=== PATIENT | male | born 1935 | race Caucasian/White ===

== ENCOUNTER 2017-08-11 10:28 | Inpatient (IN) | payer MEDICARE, BC ==
[2017-08-11] MEDS ORDERED: Sodium Chloride 0.9% 10 ML Syringe FLUSH PRN (10:41)
[2017-08-11] MEDS ORDERED: Famotidine 20 MG/2 ML SDV IVPUSH ONE (10:55)
[2017-08-11] MEDS ORDERED: Pantoprazole 40 MG Vial IVPUSH ONE (10:55)
--- NOTE | 2017-08-11 10:58 | EDM.PDOC ---
ED HPI GENERAL MEDICAL PROBLEM - General Chief Complaint: Cardiovascular Problem Stated Complaint: [facility] Time Seen by Provider: 08/11/17 10:41 Source of Information: Reports: Patient, RN Notes Reviewed - History of Present Illness INITIAL COMMENTS - FREE TEXT/NARRATIVE: 82-year-old gentleman comes in with symptoms of dizziness, black tarry stools for the last 2 nights and now some bright blood in the toilet this morning about an hour and a half ago. He does have history of recent bypass surgery done at [facility] just over 3 weeks ago. He did have a complication after surgery of a "ruptured graft" the day after surgery. His states he was "on life support for 8-1/2 days", not coming around. Decision was made to remove life support and he "awakened one hour later". With further recovery he was ready for discharge to [facility] about one week ago. He currently is in atrial fibrillation, noted to be on aspirin and Peridex in addition to other current medications listed. He also now does have a pacemaker and I believe internal defibrillator as well. This morning he does feel more dizzy and lightheaded than usual, according to fpc staff dropped his sats down into the 70s, blood pressure into the 90s systolic and heart rate into the 40s. With oxygen his sats of come up to 100%. Blood pressure and heart rate also improved on arrival to ED. We'll to ED he has no chest or abdominal discomfort. He does not any longer feel short of breath. He has no prior history of bleeding ulcer or other GI bleeding. His last colonoscopy many years ago, about 10 years ago. - Related Data Allergies Allergy/AdvReac Type Severity Reaction Status Date / Time No Known Allergies Allergy Verified 08/11/17 10:49 Home Meds: Home Meds Acetaminophen [Tylenol] 650 mg PO Q6H PRN 08/11/17 [History] Aspirin 325 mg PO DAILY 08/11/17 [History] Calcium Carbonate [Tums] 600 mg PO QID PRN 08/11/17 [History] Dabigatran Etexilate Mesylate [Pradaxa] 150 mg PO BID 08/11/17 [History] Famotidine 20 mg PO BID 08/11/17 [History] Furosemide 40 mg PO BID 08/11/17 [History] Hydrochlorothiazide 25 mg PO DAILY 08/11/17 [History] Latanoprost [Xalatan 0.005% Ophth Soln] 1 drop EYEBOTH BEDTIME 08/11/17 [History ] Losartan [Cozaar] 100 mg PO DAILY 08/11/17 [History] Metoprolol Tartrate [Lopressor] 50 mg PO BID 08/11/17 [History] Multivit-Min/FA/Lycopene/Lut [Certavite Sr-Antioxidant Tab] 1 tab PO DAILY 08/11 [History] Mupirocin Calcium [Bactroban] 1 applic TOP BID 08/11/17 [History] [place] Nasal [place] 2 spray INH BEDTIME 08/11/17 [History] Potassium Chloride 40 meq PO BEDTIME 08/11/17 [History] Potassium Chloride 80 meq PO DAILY 08/11/17 [History] Sennosides/Docusate Sodium [Senna-Docusate Sodium] 1 tab PO BID 08/11/17 [ History] Tamsulosin [Flomax] 0.4 mg PO BEDTIME 08/11/17 [History] Vit A,C & E/Lutein/Minerals [Healthy Eyes] 1 tab PO DAILY 08/11/17 [History] amLODIPine [Norvasc] 2.5 mg PO DAILY 08/11/17 [History] atorvaSTATin [Lipitor] 40 mg PO BEDTIME 08/11/17 [History] ED ROS GENERAL - Review of Systems Review Of Systems: See Below Constitutional: Reports: Diaphoresis (Gone). Denies: Fever, Chills HEENT: Denies: Throat Pain Respiratory: Reports: Shortness of Breath (Now better) Cardiovascular: Denies: Chest Pain Endocrine: Reports: Fatigue GI/Abdominal: Reports: Melena. Denies: Abdominal Pain, Diarrhea, Nausea, Vomiting Musculoskeletal: Reports: No Symptoms Skin: Reports: Pallor Neurological: Reports: Dizziness, Weakness. Denies: Trouble Speaking ( Generalized) ED EXAM, GENERAL - Physical Exam Exam: See Below General Appearance: Alert, No Apparent Distress Eye Exam: Bilateral Eye: PERRL Throat/Mouth: Normal Inspection Head: Atraumatic. No: Facial Swelling Neck: Supple, Full Range of Motion Respiratory/Chest: No Respiratory Distress, Lungs Clear, Normal Breath Sounds Cardiovascular: Irregularly Irregular GI/Abdominal: Soft, Non-Tender Rectal (Males) Exam: Other (Dark, slightly maroon stool strongly heme-positive) Back Exam: No: CVA Tenderness (L), CVA Tenderness (R) Extremities: Normal Inspection, Pedal Edema. No: Leg Pain (Trace bilateral), Increased Warmth, Redness Neurological: Alert, Oriented, No Motor/Sensory Deficits Skin Exam: Warm, Dry, Pallor EKG INTERPRETATION EKG Date: 08/11/17 Rhythm: A-Fib (fib/flutter, rate 100) QRS: Other (LAFB) ST-T: Other (T wave inversion V6) Course - Vital Signs Last Recorded V/S: Last Vital Signs Temp 96.5 F 08/11/17 10:28 Pulse 80 08/11/17 10:28 Resp 20 08/11/17 10:28 BP 108/60 08/11/17 10:28 Pulse Ox 76 L 08/11/17 10:28 - Orders/Labs/Meds Orders: Active Orders 24 hr Category Date Time Status EKG 12 Lead [EKG Documentation Completion] [RC] STAT Care 08/11/17 10:41 Active Peripheral IV Care [RC] . DIRECTED Care 08/11/17 10:42 Active Chest 1V Frontal [CR] Stat Exams 08/11/17 10:57 Taken PACKED CELLS [RED BLOOD CELLS LP] [BBK] Stat Lab 08/11/17 11:05 Received TYPE AND SCREEN [BBK] Stat Lab 08/11/17 11:05 Received Sodium Chloride 0.9% [Normal Saline] 1,000 ml Med 08/11/17 11:00 Active IV ASDIRECTED Sodium Chloride 0.9% [Saline Flush] Med 08/11/17 10:41 Active 10 ml FLUSH ASDIRECTED PRN Peripheral IV Insertion Adult [OM.PC] Stat Oth 08/11/17 10:42 Ordered Medication Orders Sodium Chloride (Normal Saline) 1,000 mls @ 150 mls/hr IV ASDIRECTED LORETTA Last Admin: 08/11/17 11:15 Dose: 150 mls/hr Sodium Chloride (Saline Flush) 10 ml FLUSH ASDIRECTED PRN PRN Reason: Keep Vein Open Last Admin: 08/11/17 11:15 Dose: 10 ml Labs: Laboratory Tests 08/11/17 08/11/17 08/11/17 Range/Units 11:05 11:05 11:05 WBC 7.94 (4.23-9.07) K/mm3 RBC 2.56 L (4.63-6.08) M/mm3 Hgb 7.1 L* (13.7-17.5) gm/L Hct 22.9 L (40.1-51.0) % MCV 89.5 (79.0-92.2) fl MCH 27.7 (25.7-32.2) pg MCHC 31.0 L (32.2-35.5) g/dl RDW Std Deviation 42.2 (35.1-43.9) fL Plt Count 593 H (163-337) K/mm3 MPV 9.4 (9.4-12.3) fl Neut % (Auto) 71.4 H (34.0-67.9) % Lymph % (Auto) 20.9 L (21.8-53.1) % [place] % (Auto) 5.8 (5.3-12.2) % Eos % (Auto) 1.1 (0.8-7.0) Baso % (Auto) 0.4 (0.1-1.2) % Neut # (Auto) 5.67 H (1.78-5.38) K/mm3 Lymph # (Auto) 1.66 (1.32-3.57) K/mm3 [place] # (Auto) 0.46 (0.30-0.82) K/mm3 Eos # (Auto) 0.09 (0.04-0.54) K/mm3 Baso # (Auto) 0.03 (0.01-0.08) K/mm3 Manual Slide Review Abnormal smear Sodium 137 (136-145) mEq/L Potassium 5.3 H (3.5-5.1) mEq/L Chloride 104 (98-107) mEq/L Carbon Dioxide 22 (21-32) mEq/L Anion Gap 16.3 H (5-15) BUN 40 H (7-18) mg/dL Creatinine 1.1 (0.7-1.3) mg/dL Est Cr Clr Drug Dosing 63.57 mL/min Estimated GFR (MDRD) > 60 (>60) mL/min BUN/Creatinine Ratio 36.4 H (14-18) Glucose 162 H (83-115) mg/dL Calcium 8.2 L (8.5-10.1) mg/dL Total Bilirubin 0.4 (0.2-1.0) mg/dL AST 31 (15-37) U/L ALT 67 H (16-63) U/L Alkaline Phosphatase 80 (46-116) U/L Troponin I 0.039 (0.00-0.056) ng/mL NT-Pro-B Natriuret Pep 1540 H (0-450) pg/mL Total Protein 6.0 L (6.4-8.2) g/dl Albumin 2.5 L (3.4-5.0) g/dl Globulin 3.5 gm/dL Albumin/Globulin Ratio 0.7 L (1-2) Meds: Medications Generic Name Dose Route Start Last Admin Trade Name Freq PRN Reason Stop Dose Admin Sodium Chloride 1,000 mls @ 150 mls/hr 08/11/17 11:00 08/11/17 11:15 Normal Saline IV 150 mls/hr ASDIRECTED LORETTA Administration Sodium Chloride 10 ml 08/11/17 10:41 08/11/17 11:15 Saline Flush FLUSH 10 ml ASDIRECTED PRN Administration Keep Vein Open Discontinued Medications Generic Name Dose Route Start Last Admin Trade Name Freq PRN Reason Stop Dose Admin Famotidine 20 mg 08/11/17 10:55 08/11/17 11:17 Pepcid IVPUSH 08/11/17 10:56 20 mg ONETIME ONE Administration Pantoprazole Sodium 40 mg 08/11/17 10:55 08/11/17 11:21 Protonix Iv IVPUSH 08/11/17 10:56 40 mg ONETIME ONE Administration - Re-Assessments/Exams Free Text/Narrative Re-Assessment/Exam: 08/11/17 11:25 Type and screen ordered with initial labs, hemoglobin has come back at 7.1. Request has been put in for 2 units of packed cells. I discussed risks benefits with patient and spouse and they strongly agree that he should get blood transfusion before his blood level drops any further. He would like to be admitted to this hospital if possible. CXR looks fine, other labs pending. Departure - Departure Time of Disposition: 11:30 Disposition: Admitted As Inpatient 66 Condition: Serious Clinical Impression: GIB (gastrointestinal bleeding) Qualifiers: GI bleed type/associated pathology: melena Qualified Code(s): K92.1 - Melena Referrals: Bill Love MD [Primary Care Provider] - Forms: ED Department Discharge ED Communication - Discussed Case With (1) Discussed Case With (1): Admitting Provider (Dr Menchaca, decision to admit at about 11:35.) - My Orders Last 24 Hours: My Active Orders 08/11/17 10:41 EKG 12 Lead [EKG Documentation Completion] [RC] STAT Sodium Chloride 0.9% [Saline Flush] 10 ml FLUSH ASDIRECTED PRN 08/11/17 10:42 Peripheral IV Care [RC] . DIRECTED Peripheral IV Insertion Adult [OM.PC] Stat 08/11/17 10:57 Chest 1V Frontal [CR] Stat 08/11/17 11:00 Sodium Chloride 0.9% [Normal Saline] 1,000 ml IV ASDIRECTED 08/11/17 11:05 PACKED CELLS [RED BLOOD CELLS LP] [BBK] Stat TYPE AND SCREEN [BBK] Stat - Assessment/Plan Last 24 Hours: My Active Orders 08/11/17 10:41 EKG 12 Lead [EKG Documentation Completion] [RC] STAT Sodium Chloride 0.9% [Saline Flush] 10 ml FLUSH ASDIRECTED PRN 08/11/17 10:42 Peripheral IV Care [RC] . DIRECTED Peripheral IV Insertion Adult [OM.PC] Stat 08/11/17 10:57 Chest 1V Frontal [CR] Stat 08/11/17 11:00 Sodium Chloride 0.9% [Normal Saline] 1,000 ml IV ASDIRECTED 08/11/17 11:05 PACKED CELLS [RED BLOOD CELLS LP] [BBK] Stat TYPE AND SCREEN [BBK] Stat
[2017-08-11] MEDS ORDERED: Sodium Chloride 0.9% 1,000 ML IV SCH (11:00)
--- NOTE | 2017-08-11 12:19 | CR ---
Chest: Portable view of the chest was obtained. Comparison: No prior chest x-ray. Heart size and mediastinum are within normal limits for portable technique. Pacemaker is noted. Prosthetic heart valve is seen with sternotomy wires. Lungs are clear with no acute parenchymal densities. Bony structures are grossly intact. Impression: 1. Incidental findings. Nothing acute is identified on portable chest x-ray. Diagnostic code #2
--- NOTE | 2017-08-11 14:56 | PCM.HP ---
H&P History of Present Illness - General Date of Service: 08/11/17 Admit Problem/Dx: Admission Diagnosis/Problem Admission Diagnosis/Problem Gastric hemorrhage Source of Information: Patient, Provider, RN, RN Notes Reviewed History Limitations: Reports: No Limitations - History of Present Illness Initial Comments - Free Text/Narative: Abiodun Worrell is an 82 yo male who presents to our ED today 08/11/17 with 2 days of dark tarry stool. He also reports bright red blood mixed inwith the dark tarry stool as o this morning. His hemoglobin was found to be 7. He has denied any dyspepsia, abdominal pain, or heartburn. His appetite has been fair but he is residing in a usp and does not like the food. He reports a previous colonoscopy of over 10 years ago which wasn normal per his report. There were some benign polyps removed at that time. Brothers had colon cancer and 3 siblings have Crohn's disease. He reportedly had CABG 4 and carotid and coronary endarterectomy 3 weeks ago at [facility] in [place]. He reportedly had a "ruptured graft" the day after surgery and was subsequently intubated and remained in the ICU for 8 and a half days. Because he was not making progress the decision was made to terminate life-support. A few hours after this he suddenly woke up and continued to improve. steve was then discharged back to [facility] to [facility] approximately one week ago. He has been in A. fib and is on aspirin and Pradaxa. While in [place] a pacemaker and internal defibrillator were placed. As this morning he reportedly has started feeling dizzy and lightheaded. skilled nursing staff reports his sats dropped into the 70s and blood pressure was in the 90s systolic. Heart rate was also noted to be in the 40s. Oxygen was initiated his satsreturned to 100%. On arrival ED heart rate and blood pressure had improved. He denied any chest or abdominal discomfort. Denies shortness of breath. He has no prior history of bleeding ulcers or GI bleeding. In the ER 12-lead EKG was obtained which shows an A. fib aat a rate of 100. A LAFB was noted There is also T-wave inversion noted on V6. Capture was 96.5F. Pulse 80. Respirations 20. Blood pressure 108/60. Pulse ox 76%. Labs were obtained: WBCs were 7.94. Hemoglobin is low at 7.1. Hematocrit low at 22.9. He is normocytic. Neutrophils elevated at 71.4%. Sodium was good at 137. Potassium was igh at 5.3. Chloride 104. Carbon dioxide 22. Anion gap was elevated at 16.3. BUN was high at 40. Creatinine 1.1. EGFR is greater than 60. Glucose is high at 162. Calcium 8.2. Bilirubin 0.4. AST was 31, ALT 67, alkaline phosphatase 80. Troponin was negative at 0.039. ProBNP was high at 1540. Total protein was low at 6.0. Albumin is low at 2.5. He was given Pepcid, Protonix, and 150 mls NS was started. He was typed and screened for 2 units. Chest x-ray shows nothing acute. His rectal exam showed strongly heme positive, slightly maroon stool. He carries a history of: oosteoarthritis, BPH, hypertension, mild asthma, A. fib , KAYDEN, CAD, recent CABG, recent pacemaker/defibrillator placement. he is a former smoker. He is subsequently admitted to the medical floor on telemetry. He is a full code. His PCP is Dr. Love at [facility]. - Related Data Allergies/Adverse Reactions: Allergies Allergy/AdvReac Type Severity Reaction Status Date / Time No Known Allergies Allergy Verified 08/11/17 15:10 Home Medications: Home Meds Acetaminophen [Tylenol] 650 mg PO Q6H PRN 08/11/17 [History] Aspirin 325 mg PO DAILY 08/11/17 [History] Calcium Carbonate [Tums] 600 mg PO QID PRN 08/11/17 [History] Dabigatran Etexilate Mesylate [Pradaxa] 150 mg PO BID 08/11/17 [History] Famotidine 20 mg PO BID 08/11/17 [History] Furosemide 40 mg PO BID 08/11/17 [History] Hydrochlorothiazide 25 mg PO DAILY 08/11/17 [History] Latanoprost [Xalatan 0.005% Ophth Soln] 1 drop EYEBOTH BEDTIME 08/11/17 [History ] Losartan [Cozaar] 100 mg PO DAILY 08/11/17 [History] Metoprolol Tartrate [Lopressor] 50 mg PO BID 08/11/17 [History] Multivit-Min/FA/Lycopene/Lut [Certavite Sr-Antioxidant Tab] 1 tab PO DAILY 08/11 [History] Mupirocin Calcium [Bactroban] 1 applic TOP BID 08/11/17 [History] [place] Nasal [place] 2 spray INH BEDTIME 08/11/17 [History] Potassium Chloride 40 meq PO DAILY 08/11/17 [History] Potassium Chloride 80 meq PO BID 08/11/17 [History] Sennosides/Docusate Sodium [Senna-Docusate Sodium] 1 tab PO BID 08/11/17 [ History] Tamsulosin [Flomax] 0.4 mg PO BEDTIME 08/11/17 [History] Vit A,C & E/Lutein/Minerals [Healthy Eyes] 1 tab PO DAILY 08/11/17 [History] amLODIPine [Norvasc] 2.5 mg PO DAILY 08/11/17 [History] atorvaSTATin [Lipitor] 40 mg PO BEDTIME 08/11/17 [History] Past Medical History HEENT History: Reports: Cataract, Impaired Vision Other HEENT History: wears eyeglasses Cardiovascular History: Reports: Afib, Hypertension, DC, Pacemaker Other Cardiovascular History: ablation, 3 nerves, ventricular bygemny Respiratory History: Reports: Sleep Apnea Other Respiratory History: wears C-PAP while sleeping. Other Genitourinary History: enlarged prostate. Musculoskeletal History: Reports: Back Pain, Chronic Neurological History: Reports: Concussion - Infectious Disease History Infectious Disease History: Reports: Chicken Pox, Measles, Mumps - Past Surgical History HEENT Surgical History: Reports: Cataract Surgery Cardiovascular Surgical History: Reports: Coronary Artery Bypass GI Surgical History: Reports: Cholecystectomy Musculoskeletal Surgical History: Reports: Knee Replacement Social & Family History - Tobacco Use Smoking Status *Q: Former Smoker Used Tobacco, but Quit: No - Caffeine Use Caffeine Use: Reports: Coffee - Recreational Drug Use Recreational Drug Use: No H&P Review of Systems - Review of Systems: Review Of Systems: See Below General: Reports: Malaise, Weakness, Fatigue. Denies: Fever, Night Sweats, Diaphoresis, Decreased Appetite HEENT: Reports: No Symptoms Pulmonary: Reports: No Symptoms. Denies: Shortness of Breath, Wheezing, Cough, Sputum, Other Cardiovascular: Reports: No Symptoms. Denies: Chest Pain, Palpitations, Dyspnea on Exertion, Edema, Lightheadedness Gastrointestinal: Reports: Flatus, Hematochezia, Melena. Denies: Abdominal Pain , Decreased Appetite, Hematemesis, Nausea, Vomiting Genitourinary: Reports: No Symptoms. Denies: Dysuria, Frequency, Burning, Pain , Urgency Musculoskeletal: Reports: No Symptoms Skin: Reports: No Symptoms Psychiatric: Reports: No Symptoms Neurological: Reports: No Symptoms Hematologic/Lymphatic: Reports: Anemia Immunologic: Reports: No Symptoms Exam - Exam Exam: See Below - Vital Signs Vital Signs: Last Vital Signs Temp 98.0 F 08/11/17 13:02 Pulse 60 08/11/17 13:02 Resp 20 08/11/17 13:02 BP 122/58 L 08/11/17 13:02 Pulse Ox 100 08/11/17 13:02 Weight: 275 lb - Exam Quality Assessment: Supplemental Oxygen General: Alert, Oriented, Cooperative. No: Mild Distress HEENT: PERRLA, Hearing Intact, Mucosa Moist & [place], Nares Patent, Normal Nasal Septum, Posterior Pharynx Clear, Conjunctiva Clear, EOMI, EACs Clear, TMs Clear Neck: Supple, Trachea Midline Lungs: Clear to Auscultation, Normal Respiratory Effort Cardiovascular: Irregular Rhythm, Other (CABG scar on chest ) GI/Abdominal Exam: Normal Bowel Sounds, Soft, Non-Tender, No Organomegaly, No Distention, No Abnormal Bruit, No Mass, Pelvis Stable (Male) Exam: Deferred Rectal (Males) Exam: Deferred Back Exam: Normal Inspection, Full Range of Motion Extremities: Normal Inspection, Normal Range of Motion, Non-Tender, Normal Capillary Refill, Pedal Edema (trace bilaterally ) Peripheral Pulses: 2+: Radial (L), Radial (R), Posterior Tibial (L), Posterior Tibial (R), Dorsalis Pedis (L), Dorsalis Pedis (R) Skin: Warm, Dry, Intact Neurological: Cranial Nerves Intact (grossly ) Neuro Extensive - Mental Status: Alert, Oriented x3, Normal Mood/Affect, Normal Cognition, Memory Intact Psychiatric: Alert, Normal Affect, Normal Mood - Patient Data Result Diagrams: 08/11/17 11:05 08/11/17 11:05 *Q Meaningful Use (ADM) - VTE *Q VTE Criteria *Q: - Stroke *Q Stroke Criteria *Q: - AMI *Q AMI Criteria *Q: - Problem List (1) GIB (gastrointestinal bleeding) SNOMED Code(s): 12002069 ICD Code: K92.2 - GASTROINTESTINAL HEMORRHAGE, UNSPECIFIED Status: Acute Priority: High Current Visit: Yes Qualifiers: GI bleed type/associated pathology: melena Qualified Code(s): K92.1 - Melena (2) Acute blood loss anemia SNOMED Code(s): 808248557 ICD Code: D62 - ACUTE POSTHEMORRHAGIC ANEMIA Status: Acute Priority: High Current Visit: Yes (3) S/P CABG x 4 SNOMED Code(s): 518123979 ICD Code: Z95.1 - PRESENCE OF AORTOCORONARY BYPASS GRAFT Status: Chronic Priority: High Current Visit: Yes (4) S/P placement of cardiac pacemaker SNOMED Code(s): 808937708, 237980424 ICD Code: Z95.0 - PRESENCE OF CARDIAC PACEMAKER Status: Chronic Priority : High Current Visit: Yes (5) KAYDEN (obstructive sleep apnea) SNOMED Code(s): 37870524 ICD Code: G47.33 - OBSTRUCTIVE SLEEP APNEA (ADULT) (PEDIATRIC) Status: Chronic Priority: Low Current Visit: Yes (6) Osteoarthritis SNOMED Code(s): 171057306 ICD Code: M19.90 - UNSPECIFIED OSTEOARTHRITIS, UNSPECIFIED SITE Status: Chronic Priority: Low Current Visit: No Qualifiers: Osteoarthritis location: unspecified site Osteoarthritis type: primary Qualified Code(s): M19.91 - Primary osteoarthritis, unspecified site (7) Asthma SNOMED Code(s): 290400132 ICD Code: J45.909 - UNSPECIFIED ASTHMA, UNCOMPLICATED Status: Chronic Priority: Low Current Visit: No Qualifiers: Asthma severity: mild Asthma persistence: unspecified Asthma complication type: unspecified Qualified Code(s): J45.998 - Other asthma (8) A-fib SNOMED Code(s): 63442245 ICD Code: I48.91 - UNSPECIFIED ATRIAL FIBRILLATION Status: Chronic Priority: Medium Current Visit: Yes Qualifiers: Atrial fibrillation type: chronic Qualified Code(s): I48.2 - Chronic atrial fibrillation (9) HTN (hypertension) SNOMED Code(s): 51048874 ICD Code: I10 - ESSENTIAL (PRIMARY) HYPERTENSION Status: Chronic Priority : Low Current Visit: No Qualifiers: Hypertension type: essential hypertension Qualified Code(s): I10 - Essential (primary) hypertension (10) Other cardiomyopathies SNOMED Code(s): 21742994 ICD Code: I42.8 - OTHER CARDIOMYOPATHIES Status: Chronic Priority: Medium Current Visit: No (11) BPH (benign prostatic hyperplasia) SNOMED Code(s): 512320221 ICD Code: N40.0 - BENIGN PROSTATIC HYPERPLASIA WITHOUT LOWER URINRY TRACT SYMP Status: Chronic Priority: Low Current Visit: No Qualifiers: Lower urinary tract symptom presence: unspecified whether lower urinary tract symptoms present Qualified Code(s): N40.0 - Benign prostatic hyperplasia without lower urinary tract symptoms (12) CAD (coronary artery disease) SNOMED Code(s): 34726989 ICD Code: I25.10 - ATHSCL HEART DISEASE OF [place] CORONARY ARTERY W/O ANG PCTRS Status: Chronic Priority: Medium Current Visit: No Qualifiers: Coronary Disease-Associated Artery/Lesion type: bypass graft [place] vs. transplanted heart: upper [place] heart Associated angina: angina presence unspecified Qualified Code(s): I25.810 - Atherosclerosis of coronary artery bypass graft(s) without angina pectoris Problem List Initiated/Reviewed/Updated: Yes Orders Last 24hrs: Medication Orders Sodium Chloride (Normal Saline) 1,000 mls @ 150 mls/hr IV ASDIRECTED LORETTA Last Admin: 08/11/17 11:15 Dose: 150 mls/hr Sodium Chloride (Saline Flush) 10 ml FLUSH ASDIRECTED PRN PRN Reason: Keep Vein Open Last Admin: 08/11/17 11:15 Dose: 10 ml Assessment/Plan Comment:: I/P: Acute: GI bleeding -Reports melonic stools for 2 days prior to coming to ed -BRBPR morning of admission -Denies abdominal pain, dyspepsia, heartburn -On ASA and Pradexa - hold -Recently placed pacemaker/defibrilator and CABGx4 -No hx/o colon cancer, ulcers, GI bleeding -Last colonoscopy 10+ years ago -Hgb 7.2 in ED -Heme positive maroon stool in ED -2 units PRBC given in ED and on floor - lasix given after -Clear liquid diet -Dr Ortega consulted - planning on colonoscopy/EGD on Tuesday -Off blood thinners for 48 hrs -Bowel prep per Dr. Ortega orders -PPI daily -Monitor AM labs Anemia -2/2 above -Received 2 uints -Other orders as above Chronic: S/P CABGx4 S/P pacemaker/ICD placement KAYDEN - home CPAP OA A-fib - hold blood thinners for now BPH CAD Plan: Admit to medical floor on telemetry CM/SW for discharge planning - resident of [facility] currently PT/OT GI prophylaxis: PPI DVT/PE prophylaxis: KATT miller - No blood thinners due to bleed, No SCDs due to recent vein stripping Other orders as indicated above Home meds as ordered Routine AM labs Code status: Full code; PCP: Dr. Love at [facility]; Cardiology: Dr. Meyer; CT surgeon: Dr. Alvarez
[2017-08-11] MEDS ORDERED: Furosemide 20 MG/2 ML VIAL IVPUSH ONE ×2 (15:45→19:29)
[2017-08-11] MEDS: Sodium Chloride 0.9% 250 ML IV SCH (15:58)
[2017-08-11] MEDS ORDERED: Ondansetron 4 MG Tab.DIS PO PRN (16:14)
[2017-08-11] MEDS ORDERED: Ondansetron 4 MG/2 ML SDV IV PRN (16:14)
[2017-08-11] MEDS ORDERED: Acetaminophen 325 MG Tab PO PRN (16:14)
[2017-08-11] MEDS ORDERED: Acetaminophen/HYDROcodone 325-5 MG Tab PO PRN (16:14)
[2017-08-11] MEDS ORDERED: Metoprolol Tartrate 5 MG/5 ML SDV IVPUSH PRN (16:20)
[2017-08-11] MEDS ORDERED: hydrALAZINE 20 MG/ML SDV IVPUSH PRN (16:20)
--- NOTE | 2017-08-11 17:00 | PCM.CONS ---
H&P History of Present Illness - General Date of Service: 08/11/17 Admit Problem/Dx: Admission Diagnosis/Problem Admission Diagnosis/Problem Gastric hemorrhage Source of Information: Patient, Family, Provider - History of Present Illness Initial Comments - Free Text/Narative: 82-year-old male is about 3 weeks status post coronary artery bypass grafting which was complicated by a postop bleeding graft necessitating emergency sternotomy for control of bleeding. He was in the ICU for 2 weeks and life support was withdrawn because he was clinically deemed to be nonsalvageable despite all medical efforts, but he managed to survive and dramatically improved to the point where he could be discharged to postcardiac surgical rehabilitation on Plavix and Pradexa. A pacemaker was placed prior to discharge. He continued to do well in rehabilitation but began to notice that he was becoming more fatigued with ambulation and manifested more dyspnea on exertion. 2 days ago he had a dark stool. 24 hours ago he had 3 black tarry stools. This morning he had red bleeding. Because of this he presented to the emergency room for evaluation and was found to have a hemoglobin of approximately 7. He denied dyspepsia abdominal pain and heartburn. His appetite has been fair at best because he doesn't like the food at the residential. His last colonoscopy was over 10 years ago and by report from him was normal. His previous colonoscopy before that one was associated with benign polyps which were removed. His brother had colon cancer. 3 siblings have Crohn's disease. He is currently hemodynamically stable. I have been asked to see him for GI bleeding. - Related Data Allergies/Adverse Reactions: Allergies Allergy/AdvReac Type Severity Reaction Status Date / Time No Known Allergies Allergy Verified 08/11/17 15:10 Home Medications: Home Meds Acetaminophen [Tylenol] 650 mg PO Q6H PRN 08/11/17 [History] Aspirin 325 mg PO DAILY 08/11/17 [History] Calcium Carbonate [Tums] 600 mg PO QID PRN 08/11/17 [History] Dabigatran Etexilate Mesylate [Pradaxa] 150 mg PO BID 08/11/17 [History] Famotidine 20 mg PO BID 08/11/17 [History] Furosemide 40 mg PO BID 08/11/17 [History] Hydrochlorothiazide 25 mg PO DAILY 08/11/17 [History] Latanoprost [Xalatan 0.005% Ophth Soln] 1 drop EYEBOTH BEDTIME 08/11/17 [History ] Losartan [Cozaar] 100 mg PO DAILY 08/11/17 [History] Metoprolol Tartrate [Lopressor] 50 mg PO BID 08/11/17 [History] Multivit-Min/FA/Lycopene/Lut [Certavite Sr-Antioxidant Tab] 1 tab PO DAILY 08/11 [History] Mupirocin Calcium [Bactroban] 1 applic TOP BID 08/11/17 [History] [place] Nasal [place] 2 spray INH BEDTIME 08/11/17 [History] Potassium Chloride 40 meq PO DAILY 08/11/17 [History] Potassium Chloride 80 meq PO BID 08/11/17 [History] Sennosides/Docusate Sodium [Senna-Docusate Sodium] 1 tab PO BID 08/11/17 [ History] Tamsulosin [Flomax] 0.4 mg PO BEDTIME 08/11/17 [History] Vit A,C & E/Lutein/Minerals [Healthy Eyes] 1 tab PO DAILY 08/11/17 [History] amLODIPine [Norvasc] 2.5 mg PO DAILY 08/11/17 [History] atorvaSTATin [Lipitor] 40 mg PO BEDTIME 08/11/17 [History] Past Medical History HEENT History: Reports: Cataract, Impaired Vision Other HEENT History: wears eyeglasses Cardiovascular History: Reports: Afib, Hypertension, [place], Pacemaker Other Cardiovascular History: ablation, 3 nerves, ventricular bygemny Respiratory History: Reports: Sleep Apnea Other Respiratory History: wears C-PAP while sleeping. Other Genitourinary History: enlarged prostate. Musculoskeletal History: Reports: Back Pain, Chronic Neurological History: Reports: Concussion - Infectious Disease History Infectious Disease History: Reports: Chicken Pox, Measles, Mumps - Past Surgical History HEENT Surgical History: Reports: Cataract Surgery Cardiovascular Surgical History: Reports: Coronary Artery Bypass GI Surgical History: Reports: Cholecystectomy Musculoskeletal Surgical History: Reports: Knee Replacement Social & Family History - Tobacco Use Smoking Status *Q: Former Smoker Used Tobacco, but Quit: Yes Month/Year Tobacco Last Used: 1979 Second Hand Smoke Exposure: No - Caffeine Use Caffeine Use: Reports: Coffee - Recreational Drug Use Recreational Drug Use: No H&P Review of Systems - Review of Systems: Review Of Systems: ROS reveals no pertinent complaints other than HPI. Exam - Exam Exam: See Below - Vital Signs Vital Signs: Last Vital Signs Temp 36.6 C 08/11/17 16:05 Pulse 63 08/11/17 16:05 Resp 20 08/11/17 16:05 BP 132/59 L 08/11/17 16:05 Pulse Ox 99 08/11/17 16:05 Weight: 128.14 kg - Exam Quality Assessment: Supplemental Oxygen General: Alert, Oriented, Cooperative HEENT: EOMI, Hearing Intact Neck: Supple, Trachea Midline Lungs: Clear to Auscultation, Normal Respiratory Effort, Other (Well-healed sternotomy incision. Well-healed pacemaker incision.) Cardiovascular: Irregular Rhythm GI/Abdominal Exam: Soft, Non-Tender (Male) Exam: Deferred Rectal (Males) Exam: Deferred Back Exam: Normal Inspection Extremities: Non-Tender Skin: Warm, Dry, Other (Pale) Neuro Extensive - Mental Status: Alert, Oriented x3, Normal Mood/Affect, Normal Cognition Psychiatric: Alert, Normal Affect, Normal Mood - Patient Data Result Diagrams: 08/11/17 11:05 08/11/17 11:05 Consult PN Assessment/Plan Procedures: Procedures CARDIOVASCULAR STRESS TEST (01/28/14) ECG MONIT/REPRT UP TO 48 HRS (01/28/16) ECG MONIT/REPRT UP TO 48 HRS (01/28/16) ECG MONIT/REPRT UP TO 48 HRS (03/05/15) ECG MONIT/REPRT UP TO 48 HRS (03/05/15) ECG MONIT/REPRT UP TO 48 HRS (10/09/14) ECG MONIT/REPRT UP TO 48 HRS (10/09/14) ECG MONIT/REPRT UP TO 48 HRS (05/20/14) ECG MONIT/REPRT UP TO 48 HRS (05/20/14) HT MUSCLE IMAGE SPECT MULT (01/28/14) POLYSOM 6/>YRS CPAP 4/> PARM (07/19/15) TISSUE EXAM BY PATHOLOGIST (02/05/14) (1) Acute blood loss anemia SNOMED Code(s): 899121859 Code(s): D62 - ACUTE POSTHEMORRHAGIC ANEMIA Priority: High Current Visit : Yes (2) GIB (gastrointestinal bleeding) SNOMED Code(s): 62648426 Code(s): K92.2 - GASTROINTESTINAL HEMORRHAGE, UNSPECIFIED Priority: High Current Visit: Yes Qualifiers: GI bleed type/associated pathology: melena Qualified Code(s): K92.1 - Melena Problem List Initiated/Reviewed/Updated: Yes My Orders Last 24 Hours: imp: Patient is at risk for postop stress gastritis and ulcers, with bleeding exacerbated by his antiplatelet agent and anticoagulation. His symptoms are improving after 1 unit of red blood cells and as I understand it he scheduled to receive another unit. Both he and his are interested in diagnostic panendoscopy in an effort to identify the source of his bleeding. His annual coordination has been stopped. Although I would like to have more distance between his most recent hospitalization and the diagnostic endoscopy I feel that the patient is strong enough to tolerate the procedures. plan: Esophagogastroduodenoscopy and diagnostic colonoscopy for Tuesday morning. Tomorrow I begin his bowel preparation with magnesium citrate and Dulcolax. He and his have agreed to have me proceed and they want everything done.
[2017-08-11] MEDS ORDERED: THROMBIN RECTAL ONE ×2 (22:02)
[2017-08-11] MEDS ORDERED: WATER FOR IRRIGATION STERILE RECTAL ONE ×2 (22:02)
[2017-08-12] MEDS ORDERED: Furosemide 40 MG/4 ML VIAL IVPUSH ONE (05:53)
[2017-08-12] MEDS: Sodium Chloride 0.9% 250 ML IV SCH (06:37)
[2017-08-12] MEDS ORDERED: Pantoprazole 40 MG Tab.CR PO SCH (09:00)
--- NOTE | 2017-08-12 09:02 | PCM.CONSN ---
- General Info Date of Service: 08/12/17 - Review of Systems General: Reports: Weakness, Fatigue Gastrointestinal: Reports: Other (Several bloody bowel movements yesterday.) - Patient Data Vitals - Most Recent: Last Vital Signs Temp 36.6 C 08/12/17 08:00 Pulse 99 08/12/17 08:00 Resp 18 08/12/17 08:00 BP 113/50 L 08/12/17 08:00 Pulse Ox 97 08/12/17 08:00 Weight - Most Recent: 125.464 kg I&O - Last 24 Hours: Intake & Output 08/11/17 08/12/17 08/12/17 22:59 06:59 14:59 Intake Total 1229 715 Output Total 700 Balance 1229 15 Lab Results Last 24 Hours: Laboratory Results - last 24 hr 08/11/17 08/11/17 08/11/17 Range/Units 15:35 20:51 20:51 Hgb 7.4 L (13.7-17.5) gm/L Hct 22.5 L (40.1-51.0) % PT (8.0-13.0) SECONDS INR APTT (22-36) SECONDS MRSA (PCR) Negative Blood Type A NEGATIVE Gel Antibody Screen Negative Crossmatch See Detail 08/11/17 Range/Units 20:51 Hgb (13.7-17.5) gm/L Hct (40.1-51.0) % PT 12.7 (8.0-13.0) SECONDS INR 1.18 APTT 32 (22-36) SECONDS MRSA (PCR) Blood Type Gel Antibody Screen Crossmatch Med Orders - Current: Current Medications Acetaminophen (Tylenol) 650 mg PO Q4H PRN PRN Reason: Pain (Mild 1-3)/fever Hydrocodone Bitart/Acetaminophen ([place] 325-5 Mg) 1 tab PO Q4H PRN PRN Reason: Pain (moderate 4-6) Hydralazine HCl (Apresoline) 10 mg IVPUSH Q6H PRN PRN Reason: Hypertension Sodium Chloride (Normal Saline) 1,000 mls @ 150 mls/hr IV ASDIRECTED [facility] Last Admin: 08/11/17 11:15 Dose: 150 mls/hr Sodium Chloride (Normal Saline) 250 mls @ 250 mls/hr IV ASDIRECTED [facility] Last Admin: 08/12/17 06:37 Dose: 250 mls/hr Metoprolol Tartrate (Lopressor) 5 mg IVPUSH Q4H PRN PRN Reason: Tachycardia Ondansetron HCl (Zofran Odt) 4 mg PO Q6H PRN PRN Reason: nausea, able to take PO Ondansetron HCl (Zofran) 4 mg IV Q6H PRN PRN Reason: Nausea/Vomiting Pantoprazole Sodium (Protonix) 40 mg PO DAILY [facility] Sodium Chloride (Saline Flush) 10 ml FLUSH ASDIRECTED PRN PRN Reason: Keep Vein Open Last Admin: 08/11/17 11:15 Dose: 10 ml Discontinued Medications Thrombin 50,000 unit/ Sterile (Water 1,000 ml) 0 unit RECTAL ONETIME ONE Stop: 08/11/17 22:03 Last Admin: 08/12/17 01:24 Dose: Not Given Famotidine (Pepcid) 20 mg IVPUSH ONETIME ONE Stop: 08/11/17 10:56 Last Admin: 08/11/17 11:17 Dose: 20 mg Furosemide (Lasix) 20 mg IVPUSH NOW ONE Stop: 08/11/17 15:46 Last Admin: 08/11/17 15:58 Dose: 20 mg Furosemide (Lasix) 20 mg IVPUSH NOW ONE Stop: 08/11/17 19:30 Last Admin: 08/11/17 19:57 Dose: 20 mg Furosemide (Lasix) 40 mg IVPUSH ONETIME ONE Stop: 08/12/17 05:54 Last Admin: 08/12/17 06:04 Dose: 40 mg Pantoprazole Sodium (Protonix Iv) 40 mg IVPUSH ONETIME ONE Stop: 08/11/17 10:56 Last Admin: 08/11/17 11:21 Dose: 40 mg - Exam Quality Assessment: Supplemental Oxygen General: Alert, Oriented, Cooperative, No Acute Distress Consult PN Assessment/Plan Procedures: Procedures CARDIOVASCULAR STRESS TEST (01/28/14) ECG MONIT/REPRT UP TO 48 HRS (01/28/16) ECG MONIT/REPRT UP TO 48 HRS (01/28/16) ECG MONIT/REPRT UP TO 48 HRS (03/05/15) ECG MONIT/REPRT UP TO 48 HRS (03/05/15) ECG MONIT/REPRT UP TO 48 HRS (10/09/14) ECG MONIT/REPRT UP TO 48 HRS (10/09/14) ECG MONIT/REPRT UP TO 48 HRS (05/20/14) ECG MONIT/REPRT UP TO 48 HRS (05/20/14) HT MUSCLE IMAGE SPECT MULT (01/28/14) POLYSOM 6/>YRS CPAP 4/> PARM (07/19/15) TISSUE EXAM BY PATHOLOGIST (02/05/14) (1) Acute blood loss anemia SNOMED Code(s): 502068285 Code(s): D62 - ACUTE POSTHEMORRHAGIC ANEMIA Priority: High Current Visit : Yes (2) GIB (gastrointestinal bleeding) SNOMED Code(s): 35771489 Code(s): K92.2 - GASTROINTESTINAL HEMORRHAGE, UNSPECIFIED Priority: High Current Visit: Yes Qualifiers: GI bleed type/associated pathology: melena Qualified Code(s): K92.1 - Melena Problem List Initiated/Reviewed/Updated: Yes My Orders Last 24 Hours: imp: Started yesterday because of ongoing bleeding. Patient will receive a total of 4 units of packed cells. A source needs to be localized and I will give him a quick bowel prep today and proceed with endoscopy this afternoon. plan: Diagnostic EGD and colonoscopy.
[2017-08-12] MEDS ORDERED: Magnesium Citrate Solution 296 ML Bottle PO ONE (09:04)
[2017-08-12] MEDS ORDERED: IDARUCIZUMAB 2.5 GM/50 ML IVPUSH ONE (09:16)
[2017-08-12] MEDS ORDERED: Bisacodyl 5 MG Tab PO ONE (09:25)
[2017-08-12] MEDS: IDARUCIZUMAB 2.5 GM/50 ML IVPUSH ONE ×2 (09:46→09:48)
--- NOTE | 2017-08-12 09:47 | PCM.PREANE ---
Preanesthetic Assessment - Anesthesia/Transfusion/Family Hx Anesthesia History: Prior Anesthesia Without Reaction Family History of Anesthesia Reaction: No Transfusion History: Prior Transfusion Without Reaction Intubation History: Unknown - Review of Systems General: No Symptoms, Fatigue Pulmonary: No Symptoms (Former smoker quit in 1979, with a history of mild asthma. History of KAYDEN with CPAP used.) Cardiovascular: No Symptoms (Significant for: HTN, CAD, ND, CHF, AFIB, CABG times 4 vessels Jul 19, 2017 with ND on , rescent Carotid endartectomy 3 weeks ago/ placement of pacemaker July 21, 2017 with internal defibrillator.), Dyspnea on Exertion, Lightheadedness (since anemia recently) Gastrointestinal: No Symptoms, Decreased Appetite, Melena, Nausea Neurological: No Symptoms Other: Reports: None (Kidney function decreased with BUN=40.), Easy Bleeding ( On ASA, and [facility]ad[facility] Easy Bruising - Physical Assessment NPO Status Date: 08/12/17 NPO Status Time: 10:00 Pulse: 63 O2 Sat by Pulse Oximetry: 97 Respiratory Rate: 18 Blood Pressure: 132/59 Temperature: 36.6 C Vital Signs: Last Vital Signs Temp 36.6 C 08/12/17 08:00 Pulse 99 08/12/17 08:00 Resp 18 08/12/17 08:00 BP 113/50 L 08/12/17 08:00 Pulse Ox 97 08/12/17 08:00 Height: 1.93 m Weight: 125.464 kg ASA Class: 4 Mental Status: Alert & Oriented x3 Airway Class: Mallampati = 2 Dentition: Reports: Normal Dentition, Caries Thyro-Mental Finger Breadths: 3 Mouth Opening Finger Breadths: 3 ROM/Head Extension: Full Lungs: Clear to Auscultation, Normal Respiratory Effort Cardiovascular: Regular Rate (Paced rhythm noted.), Regular Rhythm, No Murmurs - Lab Values: Laboratory Last Values WBC 7.94 K/mm3 (4.23-9.07) 08/11/17 11:05 RBC 2.56 M/mm3 (4.63-6.08) L 08/11/17 11:05 Hgb 7.4 gm/L (13.7-17.5) L 08/11/17 20:51 Hct 22.5 % (40.1-51.0) L 08/11/17 20:51 MCV 89.5 fl (79.0-92.2) 08/11/17 11:05 MCH 27.7 pg (25.7-32.2) 08/11/17 11:05 MCHC 31.0 g/dl (32.2-35.5) L 08/11/17 11:05 RDW Std Deviation 42.2 fL (35.1-43.9) 08/11/17 11:05 Plt Count 593 K/mm3 (163-337) H 08/11/17 11:05 MPV 9.4 fl (9.4-12.3) 08/11/17 11:05 Neut % (Auto) 71.4 % (34.0-67.9) H 08/11/17 11:05 Lymph % (Auto) 20.9 % (21.8-53.1) L 08/11/17 11:05 [place] % (Auto) 5.8 % (5.3-12.2) 08/11/17 11:05 Eos % (Auto) 1.1 (0.8-7.0) 08/11/17 11:05 Baso % (Auto) 0.4 % (0.1-1.2) 08/11/17 11:05 Neut # (Auto) 5.67 K/mm3 (1.78-5.38) H 08/11/17 11:05 Lymph # (Auto) 1.66 K/mm3 (1.32-3.57) 08/11/17 11:05 Caroline # (Auto) 0.46 K/mm3 (0.30-0.82) 08/11/17 11:05 Eos # (Auto) 0.09 K/mm3 (0.04-0.54) 08/11/17 11:05 Baso # (Auto) 0.03 K/mm3 (0.01-0.08) 08/11/17 11:05 Manual Slide Review Abnormal smear 08/11/17 11:05 PT 12.7 SECONDS (8.0-13.0) 08/11/17 20:51 INR 1.18 08/11/17 20:51 APTT 32 SECONDS (22-36) 08/11/17 20:51 Sodium 137 mEq/L (136-145) 08/11/17 11:05 Potassium 5.3 mEq/L (3.5-5.1) H 08/11/17 11:05 Chloride 104 mEq/L (98-107) 08/11/17 11:05 Carbon Dioxide 22 mEq/L (21-32) 08/11/17 11:05 Anion Gap 16.3 (5-15) H 08/11/17 11:05 BUN 40 mg/dL (7-18) H 08/11/17 11:05 Creatinine 1.1 mg/dL (0.7-1.3) 08/11/17 11:05 Est Cr Clr Drug Dosing 63.57 mL/min 08/11/17 11:05 Estimated GFR (MDRD) > 60 mL/min (>60) 08/11/17 11:05 BUN/Creatinine Ratio 36.4 (14-18) H 08/11/17 11:05 Glucose 162 mg/dL (83-115) H 08/11/17 11:05 Calcium 8.2 mg/dL (8.5-10.1) L 08/11/17 11:05 Total Bilirubin 0.4 mg/dL (0.2-1.0) 08/11/17 11:05 AST 31 U/L (15-37) 08/11/17 11:05 ALT 67 U/L (16-63) H 08/11/17 11:05 Alkaline Phosphatase 80 U/L (46-116) 08/11/17 11:05 Troponin I 0.039 ng/mL (0.00-0.056) 08/11/17 11:05 NT-Pro-B Natriuret Pep 1540 pg/mL (0-450) H 08/11/17 11:05 Total Protein 6.0 g/dl (6.4-8.2) L 08/11/17 11:05 Albumin 2.5 g/dl (3.4-5.0) L 08/11/17 11:05 Globulin 3.5 gm/dL 08/11/17 11:05 Albumin/Globulin Ratio 0.7 (1-2) L 08/11/17 11:05 MRSA (PCR) Negative 08/11/17 15:35 Blood Type A NEGATIVE 08/11/17 20:51 Gel Antibody Screen Negative 08/11/17 20:51 Crossmatch See Detail 08/11/17 20:51 Above labs reviewed and noted and ok to proceed with diagnostic EGD, colonoscopy. - Imaging/EKG Impressions: CXR: negative EKG: A Fib alvm=[id number], LAFB noted. - Allergies Allergies/Adverse Reactions: Allergies Allergy/AdvReac Type Severity Reaction Status Date / Time No Known Allergies Allergy Verified 08/11/17 15:10 - Blood Blood Available: Yes Product(s) Available: PRBC - Anesthesia Plan Pre-Op Medication Ordered: Beta Cristina Beta Cristina: Metoprolol Med Last Dose Date: 08/11/17 Med Last Dose Time: 08:00 - Acknowledgements Anesthesia Type Planned: MAC Pt an Appropriate Candidate for the Planned Anesthesia: Yes Alternatives and Risks of Anesthesia Discussed w Pt/Guardian: Yes Pt/Guardian Understands and Agrees with Anesthesia Plan: Yes PreAnesthesia Questionnaire HEENT History: Reports: Cataract, Impaired Vision Other HEENT History: wears eyeglasses Cardiovascular History: Reports: Afib, Hypertension, ND, Pacemaker Other Cardiovascular History: ablation, 3 nerves, ventricular bygemny Respiratory History: Reports: Sleep Apnea Other Respiratory History: wears C-PAP while sleeping. Other Genitourinary History: enlarged prostate. Musculoskeletal History: Reports: Back Pain, Chronic Neurological History: Reports: Concussion - Infectious Disease History Infectious Disease History: Reports: Chicken Pox, Measles, Mumps - Past Surgical History HEENT Surgical History: Reports: Cataract Surgery Cardiovascular Surgical History: Reports: Coronary Artery Bypass GI Surgical History: Reports: Cholecystectomy Musculoskeletal Surgical History: Reports: Knee Replacement - SUBSTANCE USE Smoking Status *Q: Former Smoker Tobacco Use Within Last Twelve Months: Cigarettes Second Hand Smoke Exposure: No Recreational Drug Use History: No - HOME MEDS Home Medications: Home Meds Acetaminophen [Tylenol] 650 mg PO Q6H PRN 08/11/17 [History] Aspirin 325 mg PO DAILY 08/11/17 [History] Calcium Carbonate [Tums] 600 mg PO QID PRN 08/11/17 [History] Dabigatran Etexilate Mesylate [Pradaxa] 150 mg PO BID 08/11/17 [History] Famotidine 20 mg PO BID 08/11/17 [History] Furosemide 40 mg PO BID 08/11/17 [History] Hydrochlorothiazide 25 mg PO DAILY 08/11/17 [History] Latanoprost [Xalatan 0.005% Ophth Soln] 1 drop EYEBOTH BEDTIME 08/11/17 [History ] Losartan [Cozaar] 100 mg PO DAILY 08/11/17 [History] Metoprolol Tartrate [Lopressor] 50 mg PO BID 08/11/17 [History] Multivit-Min/FA/Lycopene/Lut [Certavite Sr-Antioxidant Tab] 1 tab PO DAILY 08/11 [History] Mupirocin Calcium [Bactroban] 1 applic TOP BID 08/11/17 [History] [place] Nasal [place] 2 spray INH BEDTIME 08/11/17 [History] Potassium Chloride 40 meq PO DAILY 08/11/17 [History] Potassium Chloride 80 meq PO BID 08/11/17 [History] Sennosides/Docusate Sodium [Senna-Docusate Sodium] 1 tab PO BID 08/11/17 [ History] Tamsulosin [Flomax] 0.4 mg PO BEDTIME 08/11/17 [History] Vit A,C & E/Lutein/Minerals [Healthy Eyes] 1 tab PO DAILY 08/11/17 [History] amLODIPine [Norvasc] 2.5 mg PO DAILY 08/11/17 [History] atorvaSTATin [Lipitor] 40 mg PO BEDTIME 08/11/17 [History] - CURRENT (IN HOUSE) MEDS Current Meds: Current Medications Acetaminophen (Tylenol) 650 mg PO Q4H PRN PRN Reason: Pain (Mild 1-3)/fever Hydrocodone Bitart/Acetaminophen ([place] 325-5 Mg) 1 tab PO Q4H PRN PRN Reason: Pain (moderate 4-6) Hydralazine HCl (Apresoline) 10 mg IVPUSH Q6H PRN PRN Reason: Hypertension Sodium Chloride (Normal Saline) 1,000 mls @ 150 mls/hr IV ASDIRECTED [facility] Last Admin: 08/11/17 11:15 Dose: 150 mls/hr Sodium Chloride (Normal Saline) 250 mls @ 250 mls/hr IV ASDIRECTED [facility] Last Admin: 08/12/17 06:37 Dose: 250 mls/hr Metoprolol Tartrate (Lopressor) 5 mg IVPUSH Q4H PRN PRN Reason: Tachycardia Ondansetron HCl (Zofran Odt) 4 mg PO Q6H PRN PRN Reason: nausea, able to take PO Ondansetron HCl (Zofran) 4 mg IV Q6H PRN PRN Reason: Nausea/Vomiting Pantoprazole Sodium (Protonix) 40 mg PO DAILY [facility] Sodium Chloride (Saline Flush) 10 ml FLUSH ASDIRECTED PRN PRN Reason: Keep Vein Open Last Admin: 08/11/17 11:15 Dose: 10 ml Discontinued Medications Bisacodyl (Dulcolax) 30 mg PO ONETIME ONE Stop: 08/12/17 09:26 Thrombin 50,000 unit/ Sterile (Water 1,000 ml) 0 unit RECTAL ONETIME ONE Stop: 08/11/17 22:03 Last Admin: 08/12/17 01:24 Dose: Not Given Famotidine (Pepcid) 20 mg IVPUSH ONETIME ONE Stop: 08/11/17 10:56 Last Admin: 08/11/17 11:17 Dose: 20 mg Furosemide (Lasix) 20 mg IVPUSH NOW ONE Stop: 08/11/17 15:46 Last Admin: 08/11/17 15:58 Dose: 20 mg Furosemide (Lasix) 20 mg IVPUSH NOW ONE Stop: 08/11/17 19:30 Last Admin: 08/11/17 19:57 Dose: 20 mg Furosemide (Lasix) 40 mg IVPUSH ONETIME ONE Stop: 08/12/17 05:54 Last Admin: 08/12/17 06:04 Dose: 40 mg Magnesium Citrate (Citrate Of Magnesia) 296 ml PO ONETIME ONE Stop: 08/12/17 09:05 Pantoprazole Sodium (Protonix Iv) 40 mg IVPUSH ONETIME ONE Stop: 08/11/17 10:56 Last Admin: 08/11/17 11:21 Dose: 40 mg
[2017-08-12] MEDS ORDERED: Lidocaine 1% 6 ML ONE (10:53)
[2017-08-12] MEDS ORDERED: Propofol 200 MG/20 ML SDV ONE (10:53)
[2017-08-12] MEDS ORDERED: fentaNYL 100 MCG/2 ML SDV ONE (10:54)
--- NOTE | 2017-08-12 12:46 | PCM48HPAN ---
Post Anesthesia Note - EVALUATION WITHIN 48HRS OF ANESTHETIC Vital Signs in Normal Range: Yes Patient Participated in Evaluation: Yes Respiratory Function Stable: Yes Airway Patent: Yes Cardiovascular Function Stable: Yes Hydration Status Stable: Yes Pain Control Satisfactory: Yes Nausea and Vomiting Control Satisfactory: Yes Mental Status Recovered: Yes Pulse Rate: 96 SaO2: 95 Resp Rate: 18 Temperature: 36 C Blood Pressure: 140/70
--- NOTE | 2017-08-12 12:54 | PCM.OPNOTE ---
- General Post-Op/Procedure Note Date of Surgery/Procedure: 08/12/17 Operative Procedure(s): Esophagogastroduodenoscopy Findings: Large second portion of the duodenum antimesenteric ulcer containing exudate and some chronic scarring. 2 satellite ulcers proximal and distal to this area. None of the ulcers or bleeding. There were no visible vessels. There was no luminal blood clot. The first part of the duodenum was endoscopically normal. The ampulla of Vater was unremarkable as well. The stomach was endoscopically normal. Pre Op Diagnosis: Acute gastrointestinal blood loss anemia Post-Op Diagnosis: Multiple duodenal ulcers Anesthesia Technique: MAC, Moderate Sedation Primary Surgeon: Ronnell Ortega EBL in mLs: 0 Complications: None Condition: Good Free Text/Narrative:: Intake & Output 08/11/17 08/12/17 08/12/17 22:59 06:59 14:59 Intake Total 1229 715 380 Output Total 700 Balance 1229 15 380 After adequate IV sedation and analgesia was obtained with monitoring the patient was placed on his left side. A lubricated endoscope was inserted through a bite-block into the esophagus and advanced under direct vision to the stomach where additional air was given. There was no clot or fresh bleeding seen. The scope was advanced towards the pylorus which was intubated. I introduced the scope to the distal second part of the duodenum and there was no luminal blood. On withdrawal of the scope there was a large perhaps 2 cm antimesenteric ulcer with exudate at its base and two 1 cm satellite ulcers. There were no visible vessels. The ampulla of Vater was endoscopically normal. The pylorus was unremarkable. The scope was then withdrawn to the antrum which was endoscopically normal. In the retroflexed view there was no hiatal hernia. The fundus and cardiac regions were grossly normal. The body of stomach was unremarkable. The GE junction was sharp and had no acute or chronic changes. The body of the esophagus was unremarkable. Addiction Therapist photographs were taken for the patient for the medical record. Air was removed as I finished the procedure which he tolerated well.
--- NOTE | 2017-08-12 14:28 | PCM.PN ---
- General Info Date of Service: 08/12/17 Admission Dx/Problem (Free Text): Admission Diagnosis/Problem Admission Diagnosis/Problem Gastric hemorrhage - Patient Data Vitals - Most Recent: Last Vital Signs Temp 96.8 F 08/12/17 12:46 Pulse 96 08/12/17 12:46 Resp 18 08/12/17 12:46 BP 140/70 08/12/17 12:46 Pulse Ox 95 08/12/17 12:46 Weight - Most Recent: 276 lb 9.6 oz I&O - Last 24 Hours: Intake & Output 08/11/17 08/12/17 08/12/17 22:59 06:59 14:59 Intake Total 1229 715 380 Output Total 700 Balance 1229 15 380 Lab Results Last 24 Hours: Laboratory Results - last 24 hr 08/11/17 08/11/17 08/11/17 Range/Units 15:35 20:51 20:51 WBC (4.23-9.07) K/mm3 RBC (4.63-6.08) M/mm3 Hgb 7.4 L (13.7-17.5) gm/L Hct 22.5 L (40.1-51.0) % MCV (79.0-92.2) fl MCH (25.7-32.2) pg MCHC (32.2-35.5) g/dl RDW Std Deviation (35.1-43.9) fL Plt Count (163-337) K/mm3 MPV (9.4-12.3) fl Neut % (Auto) (34.0-67.9) % Lymph % (Auto) (21.8-53.1) % Burke % (Auto) (5.3-12.2) % Eos % (Auto) (0.8-7.0) Baso % (Auto) (0.1-1.2) % Neut # (Auto) (1.78-5.38) K/mm3 Lymph # (Auto) (1.32-3.57) K/mm3 Burke # (Auto) (0.30-0.82) K/mm3 Eos # (Auto) (0.04-0.54) K/mm3 Baso # (Auto) (0.01-0.08) K/mm3 Manual Slide Review PT (8.0-13.0) SECONDS INR APTT (22-36) SECONDS Sodium (136-145) mEq/L Potassium (3.5-5.1) mEq/L Chloride (98-107) mEq/L Carbon Dioxide (21-32) mEq/L Anion Gap (5-15) BUN (7-18) mg/dL Creatinine (0.7-1.3) mg/dL Est Cr Clr Drug Dosing mL/min Estimated GFR (MDRD) (>60) mL/min BUN/Creatinine Ratio (14-18) Glucose (83-115) mg/dL Calcium (8.5-10.1) mg/dL Magnesium (1.8-2.4) mg/dl C-Reactive Protein (<1.0) mg/dL NT-Pro-B Natriuret Pep (0-450) pg/mL MRSA (PCR) Negative Blood Type A NEGATIVE Gel Antibody Screen Negative Crossmatch See Detail 08/11/17 08/12/17 08/12/17 Range/Units 20:51 13:20 13:20 WBC 11.37 H (4.23-9.07) K/mm3 RBC 2.61 L (4.63-6.08) M/mm3 Hgb 7.5 L (13.7-17.5) gm/L Hct 22.8 L (40.1-51.0) % MCV 87.4 (79.0-92.2) fl MCH 28.7 (25.7-32.2) pg MCHC 32.9 (32.2-35.5) g/dl RDW Std Deviation 46.4 H (35.1-43.9) fL Plt Count 275 (163-337) K/mm3 MPV 9.9 (9.4-12.3) fl Neut % (Auto) 74.8 H (34.0-67.9) % Lymph % (Auto) 17.0 L (21.8-53.1) % Burke % (Auto) 7.2 (5.3-12.2) % Eos % (Auto) 0.1 L (0.8-7.0) Baso % (Auto) 0.1 (0.1-1.2) % Neut # (Auto) 8.51 H (1.78-5.38) K/mm3 Lymph # (Auto) 1.93 (1.32-3.57) K/mm3 Burke # (Auto) 0.82 (0.30-0.82) K/mm3 Eos # (Auto) 0.01 L (0.04-0.54) K/mm3 Baso # (Auto) 0.01 (0.01-0.08) K/mm3 Manual Slide Review Abnormal smear PT 12.7 (8.0-13.0) SECONDS INR 1.18 APTT 32 (22-36) SECONDS Sodium 139 (136-145) mEq/L Potassium 4.1 (3.5-5.1) mEq/L Chloride 105 (98-107) mEq/L Carbon Dioxide 25 (21-32) mEq/L Anion Gap 13.1 (5-15) BUN 46 H (7-18) mg/dL Creatinine 1.2 (0.7-1.3) mg/dL Est Cr Clr Drug Dosing 58.27 mL/min Estimated GFR (MDRD) 58 (>60) mL/min BUN/Creatinine Ratio 38.3 H (14-18) Glucose 155 H (83-115) mg/dL Calcium 7.7 L (8.5-10.1) mg/dL Magnesium 1.8 (1.8-2.4) mg/dl C-Reactive Protein 1.3 H* (<1.0) mg/dL NT-Pro-B Natriuret Pep (0-450) pg/mL MRSA (PCR) Blood Type Gel Antibody Screen Crossmatch 08/12/17 Range/Units 13:20 WBC (4.23-9.07) K/mm3 RBC (4.63-6.08) M/mm3 Hgb (13.7-17.5) gm/L Hct (40.1-51.0) % MCV (79.0-92.2) fl MCH (25.7-32.2) pg MCHC (32.2-35.5) g/dl RDW Std Deviation (35.1-43.9) fL Plt Count (163-337) K/mm3 MPV (9.4-12.3) fl Neut % (Auto) (34.0-67.9) % Lymph % (Auto) (21.8-53.1) % Burke % (Auto) (5.3-12.2) % Eos % (Auto) (0.8-7.0) Baso % (Auto) (0.1-1.2) % Neut # (Auto) (1.78-5.38) K/mm3 Lymph # (Auto) (1.32-3.57) K/mm3 Burke # (Auto) (0.30-0.82) K/mm3 Eos # (Auto) (0.04-0.54) K/mm3 Baso # (Auto) (0.01-0.08) K/mm3 Manual Slide Review PT (8.0-13.0) SECONDS INR APTT (22-36) SECONDS Sodium (136-145) mEq/L Potassium (3.5-5.1) mEq/L Chloride (98-107) mEq/L Carbon Dioxide (21-32) mEq/L Anion Gap (5-15) BUN (7-18) mg/dL Creatinine (0.7-1.3) mg/dL Est Cr Clr Drug Dosing mL/min Estimated GFR (MDRD) (>60) mL/min BUN/Creatinine Ratio (14-18) Glucose (83-115) mg/dL Calcium (8.5-10.1) mg/dL Magnesium (1.8-2.4) mg/dl C-Reactive Protein (<1.0) mg/dL NT-Pro-B Natriuret Pep 775 H (0-450) pg/mL MRSA (PCR) Blood Type Gel Antibody Screen Crossmatch Med Orders - Current: Current Medications Acetaminophen (Tylenol) 650 mg PO Q4H PRN PRN Reason: Pain (Mild 1-3)/fever Hydrocodone Bitart/Acetaminophen ([place] 325-5 Mg) 1 tab PO Q4H PRN PRN Reason: Pain (moderate 4-6) Hydralazine HCl (Apresoline) 10 mg IVPUSH Q6H PRN PRN Reason: Hypertension Sodium Chloride (Normal Saline) 1,000 mls @ 150 mls/hr IV ASDIRECTED [facility] Last Admin: 08/11/17 11:15 Dose: 150 mls/hr Metoprolol Tartrate (Lopressor) 5 mg IVPUSH Q4H PRN PRN Reason: Tachycardia Ondansetron HCl (Zofran Odt) 4 mg PO Q6H PRN PRN Reason: nausea, able to take PO Ondansetron HCl (Zofran) 4 mg IV Q6H PRN PRN Reason: Nausea/Vomiting Pantoprazole Sodium (Protonix) 40 mg PO DAILY [facility] Last Admin: 08/12/17 10:15 Dose: Not Given Sodium Chloride (Saline Flush) 10 ml FLUSH ASDIRECTED PRN PRN Reason: Keep Vein Open Last Admin: 08/11/17 11:15 Dose: 10 ml Discontinued Medications Bisacodyl (Dulcolax) 30 mg PO ONETIME ONE Stop: 08/12/17 09:26 Last Admin: 08/12/17 09:47 Dose: 30 mg Thrombin 50,000 unit/ Sterile (Water 1,000 ml) 0 unit RECTAL ONETIME ONE Stop: 08/11/17 22:03 Last Admin: 08/12/17 01:24 Dose: Not Given Famotidine (Pepcid) 20 mg IVPUSH ONETIME ONE Stop: 08/11/17 10:56 Last Admin: 08/11/17 11:17 Dose: 20 mg Fentanyl (Sublimaze) Confirm Administered Dose 100 mcg .ROUTE .STK-MED ONE Stop: 08/12/17 10:55 Furosemide (Lasix) 20 mg IVPUSH NOW ONE Stop: 08/11/17 15:46 Last Admin: 08/11/17 15:58 Dose: 20 mg Furosemide (Lasix) 20 mg IVPUSH NOW ONE Stop: 08/11/17 19:30 Last Admin: 08/11/17 19:57 Dose: 20 mg Furosemide (Lasix) 40 mg IVPUSH ONETIME ONE Stop: 08/12/17 05:54 Last Admin: 08/12/17 06:04 Dose: 40 mg Sodium Chloride (Normal Saline) 250 mls @ 250 mls/hr IV ASDIRECTED [facility] Last Admin: 08/12/17 06:37 Dose: 250 mls/hr Lidocaine HCl (Xylocaine-Mpf 1%) Confirm Administered Dose 6 mls @ as directed .ROUTE .STK-MED ONE Stop: 08/12/17 10:54 Magnesium Citrate (Citrate Of Magnesia) 296 ml PO ONETIME ONE Stop: 08/12/17 09:05 Last Admin: 08/12/17 09:47 Dose: 296 ml Pantoprazole Sodium (Protonix Iv) 40 mg IVPUSH ONETIME ONE Stop: 08/11/17 10:56 Last Admin: 08/11/17 11:21 Dose: 40 mg Propofol (Diprivan 20 Ml) Confirm Administered Dose 200 mg .ROUTE .STK-MED ONE Stop: 08/12/17 10:54 - Problem List & Annotations (1) GIB (gastrointestinal bleeding) SNOMED Code(s): 40886736 Code(s): K92.2 - GASTROINTESTINAL HEMORRHAGE, UNSPECIFIED Status: Acute Priority: High Current Visit: Yes Qualifiers: GI bleed type/associated pathology: melena Qualified Code(s): K92.1 - Melena (2) Acute blood loss anemia SNOMED Code(s): 690459558 Code(s): D62 - ACUTE POSTHEMORRHAGIC ANEMIA Status: Acute Priority: High Current Visit: Yes (3) S/P CABG x 4 SNOMED Code(s): 904722646 Code(s): Z95.1 - PRESENCE OF AORTOCORONARY BYPASS GRAFT Status: Chronic Priority: High Current Visit: Yes (4) S/P placement of cardiac pacemaker SNOMED Code(s): 582675244, 594117671 Code(s): Z95.0 - PRESENCE OF CARDIAC PACEMAKER Status: Chronic Priority: High Current Visit: Yes (5) KAYDEN (obstructive sleep apnea) SNOMED Code(s): 51865275 Code(s): G47.33 - OBSTRUCTIVE SLEEP APNEA (ADULT) (PEDIATRIC) Status: Chronic Priority: Low Current Visit: Yes (6) Osteoarthritis SNOMED Code(s): 148448645 Code(s): M19.90 - UNSPECIFIED OSTEOARTHRITIS, UNSPECIFIED SITE Status: Chronic Priority: Low Current Visit: No Qualifiers: Osteoarthritis location: unspecified site Osteoarthritis type: primary Qualified Code(s): M19.91 - Primary osteoarthritis, unspecified site (7) Asthma SNOMED Code(s): 081672652 Code(s): J45.909 - UNSPECIFIED ASTHMA, UNCOMPLICATED Status: Chronic Priority: Low Current Visit: No Qualifiers: Asthma severity: mild Asthma persistence: unspecified Asthma complication type: unspecified Qualified Code(s): J45.998 - Other asthma (8) A-fib SNOMED Code(s): 43338651 Code(s): I48.91 - UNSPECIFIED ATRIAL FIBRILLATION Status: Chronic Priority: Medium Current Visit: Yes Qualifiers: Atrial fibrillation type: chronic Qualified Code(s): I48.2 - Chronic atrial fibrillation (9) HTN (hypertension) SNOMED Code(s): 85716773 Code(s): I10 - ESSENTIAL (PRIMARY) HYPERTENSION Status: Chronic Priority : Low Current Visit: No Qualifiers: Hypertension type: essential hypertension Qualified Code(s): I10 - Essential (primary) hypertension (10) Other cardiomyopathies SNOMED Code(s): 81895660 Code(s): I42.8 - OTHER CARDIOMYOPATHIES Status: Chronic Priority: Medium Current Visit: No (11) BPH (benign prostatic hyperplasia) SNOMED Code(s): 480984727 Code(s): N40.0 - BENIGN PROSTATIC HYPERPLASIA WITHOUT LOWER URINRY TRACT SYMP Status: Chronic Priority: Low Current Visit: No Qualifiers: Lower urinary tract symptom presence: unspecified whether lower urinary tract symptoms present Qualified Code(s): N40.0 - Benign prostatic hyperplasia without lower urinary tract symptoms (12) CAD (coronary artery disease) SNOMED Code(s): 82187226 Code(s): I25.10 - ATHSCL HEART DISEASE OF [place] CORONARY ARTERY W/O ANG PCTRS Status: Chronic Priority: Medium Current Visit: No Qualifiers: Coronary Disease-Associated Artery/Lesion type: bypass graft [place] vs. transplanted heart: alutiiq heart Associated angina: angina presence unspecified Qualified Code(s): I25.810 - Atherosclerosis of coronary artery bypass graft(s) without angina pectoris - My Orders Last 24 Hours: My Active Orders 08/11/17 16:14 Bedrest Bedside Commode [RC] QSHIFT Height and Weight [RC] 04 Oxygen Therapy [RC] PRN Up With Assistance [RC] QSHIFT VTE/DVT Education [RC] DAILY Vital Signs [RC] Q4HR Consult to Case Management [CONS] Routine Consult to Physician [CONS] Routine Consult to Hvac Mechanical Engineer [CONS] Routine Consult to Spiritual Care [CONS] Routine OT Evaluation and Treatment [CONS] Routine PT Evaluation and Treatment [CONS] Routine Acetaminophen [Tylenol] 650 mg PO Q4H PRN Acetaminophen/HYDROcodone [[place] 325-5 MG] 1 tab PO Q4H PRN Ondansetron [Zofran ODT] 4 mg PO Q6H PRN Ondansetron [Zofran] 4 mg IV Q6H PRN 03/22/18 16:15 Cardiac Monitoring [RC] CONTINUOUS Intake and Output [RC] 04,16 Pulse Oximetry [RC] PRN Antiembolic Hose [OM.PC] Per Unit Routine 08/11/17 16:18 Antiembolic Devices [RC] QSHIFT Notify Provider Consults [RC] ASDIRECTED 08/11/17 16:20 Metoprolol Tartrate [Lopressor] 5 mg IVPUSH Q4H PRN hydrALAZINE [Apresoline] 10 mg IVPUSH Q6H PRN 08/11/17 16:42 Communication Order [RC] QSHIFT 08/11/17 16:43 CPAP Adult [RT BiPAP/CPAP] [RC] ASDIRECTED 08/11/17 20:26 Admission Status [Patient Status] [ADT] Routine 08/11/17 20:29 Transfuse Red Blood Cells [COMM] Routine 08/11/17 20:51 RED BLOOD CELLS LP [BBK] Routine TYPE AND SCREEN [BBK] Routine 08/11/17 22:39 Transfuse PRBC [Transfuse Red Blood Cells] [COMM] Routine 08/12/17 09:00 Pantoprazole [ProTONIX] 40 mg PO DAILY 08/13/17 05:11 BASIC METABOLIC PANEL,BMP [CHEM] AM CBC WITH AUTO DIFF [HEME] AM CRP [C-REACTIVE PROTEIN] [CHEM] AM MAGNESIUM [CHEM] AM 08/14/17 05:11 BASIC METABOLIC PANEL,BMP [CHEM] AM CBC WITH AUTO DIFF [HEME] AM CRP [C-REACTIVE PROTEIN] [CHEM] AM MAGNESIUM [CHEM] AM 08/15/17 05:11 BASIC METABOLIC PANEL,BMP [CHEM] AM CBC WITH AUTO DIFF [HEME] AM CRP [C-REACTIVE PROTEIN] [CHEM] AM MAGNESIUM [CHEM] AM - Plan Plan:: I/P: Acute: GI bleeding -Reports melonic stools for 2 days prior to coming to ed -BRBPR morning of admission -Denies abdominal pain, dyspepsia, heartburn -On ASA and Pradexa - hold -Recently placed pacemaker/defibrilator and CABGx4 -No hx/o colon cancer, ulcers, GI bleeding -Last colonoscopy 10+ years ago -Hgb 7.2 in ED -Heme positive maroon stool in ED -2 units PRBC given in ED and on floor - lasix given after -Clear liquid diet -Dr Ortega consulted - planning on colonoscopy/EGD on Tuesday -Off blood thinners for 48 hrs -Bowel prep per Dr. Ortega orders -PPI daily -Monitor AM labs Anemia -2/2 above -Received 2 uints -Other orders as above Chronic: S/P CABGx4 S/P pacemaker/ICD placement KAYDEN - home CPAP OA A-fib - hold blood thinners for now BPH CAD Plan: Admit to medical floor on telemetry CM/SW for discharge planning - resident of [facility] for [facility] stay currently PT/OT GI prophylaxis: PPI DVT/PE prophylaxis: KATT hose - No blood thinners due to bleed, No SCDs due to recent vein stripping Other orders as indicated above Home meds as ordered Routine AM labs Code status: Full code; PCP: Dr. Love at [place]; Cardiology: Dr. Meyer; CT surgeon: Dr. Alvarez
[2017-08-12] MEDS ORDERED: Magnesium Sulfate/Water 2 GM in Premix Bag 1 BAG IV ONE (15:49)
[2017-08-12] MEDS ORDERED: Desmopressin 40 MCG/10 ML ML IV ONE (17:11)
[2017-08-12 17:23] VITALS: BP 122/97
--- NOTE | 2017-08-12 17:55 | PCM.DCSUM1 ---
Discharge Summary - Hospital Course HPI Initial Comments: Abiodun Worrell is an 82 yo male who presents to our ED today 08/11/17 with 2 days of dark tarry stool. He also reports bright red blood mixed inwith the dark tarry stool as o this morning. His hemoglobin was found to be 7. He has denied any dyspepsia, abdominal pain, or heartburn. His appetite has been fair but he is residing in a half-way and does not like the food. He reports a previous colonoscopy of over 10 years ago which wasn normal per his report. There were some benign polyps removed at that time. Brothers had colon cancer and 3 siblings have Crohn's disease. He reportedly had CABG 4 and carotid and coronary endarterectomy 3 weeks ago at [facility] in [place]. He reportedly had a "ruptured graft" the day after surgery and was subsequently intubated and remained in the ICU for 8 and a half days. Because he was not making progress the decision was made to terminate life-support. A few hours after this he suddenly woke up and continued to improve. tseve was then discharged back to [place] to [facility] approximately one week ago. He has been in A. fib and is on aspirin and Pradaxa. While in [place] a pacemaker and internal defibrillator were placed. As this morning he reportedly has started feeling dizzy and lightheaded. correction staff reports his sats dropped into the 70s and blood pressure was in the 90s systolic. Heart rate was also noted to be in the 40s. Oxygen was initiated his satsreturned to 100%. On arrival ED heart rate and blood pressure had improved. He denied any chest or abdominal discomfort. Denies shortness of breath. He has no prior history of bleeding ulcers or GI bleeding. In the ER 12-lead EKG was obtained which shows an A. fib aat a rate of 100. A LAFB was noted There is also T-wave inversion noted on V6. Capture was 96.5F. Pulse 80. Respirations 20. Blood pressure 108/60. Pulse ox 76%. Labs were obtained: WBCs were 7.94. Hemoglobin is low at 7.1. Hematocrit low at 22.9. He is normocytic. Neutrophils elevated at 71.4%. Sodium was good at 137. Potassium was igh at 5.3. Chloride 104. Carbon dioxide 22. Anion gap was elevated at 16.3. BUN was high at 40. Creatinine 1.1. EGFR is greater than 60. Glucose is high at 162. Calcium 8.2. Bilirubin 0.4. AST was 31, ALT 67, alkaline phosphatase 80. Troponin was negative at 0.039. ProBNP was high at 1540. Total protein was low at 6.0. Albumin is low at 2.5. He was given Pepcid, Protonix, and 150 mls NS was started. He was typed and screened for 2 units. Chest x-ray shows nothing acute. His rectal exam showed strongly heme positive, slightly maroon stool. He carries a history of: oosteoarthritis, BPH, hypertension, mild asthma, A. fib , KAYDEN, CAD, recent CABG, recent pacemaker/defibrillator placement. he is a former smoker. He is subsequently admitted to the medical floor on telemetry. He is a full code. His PCP is Dr. Love at [facility]. - Discharge Data Discharge Date: 08/12/17 (Admit Date: 08/11/17) Discharge Disposition: DC/Tfer to Acute Hospital 02 Condition: Serious - Discharge Diagnosis/Problem(s) (1) GIB (gastrointestinal bleeding) SNOMED Code(s): 69115069 ICD Code: K92.2 - GASTROINTESTINAL HEMORRHAGE, UNSPECIFIED Status: Acute Priority: High Current Visit: Yes Qualifiers: GI bleed type/associated pathology: melena Qualified Code(s): K92.1 - Melena (2) Acute blood loss anemia SNOMED Code(s): 800854152 ICD Code: D62 - ACUTE POSTHEMORRHAGIC ANEMIA Status: Acute Priority: High Current Visit: Yes (3) S/P CABG x 4 SNOMED Code(s): 225433367 ICD Code: Z95.1 - PRESENCE OF AORTOCORONARY BYPASS GRAFT Status: Chronic Priority: High Current Visit: Yes (4) S/P placement of cardiac pacemaker SNOMED Code(s): 323005220, 350536805 ICD Code: Z95.0 - PRESENCE OF CARDIAC PACEMAKER Status: Chronic Priority : High Current Visit: Yes (5) KAYDEN (obstructive sleep apnea) SNOMED Code(s): 63774452 ICD Code: G47.33 - OBSTRUCTIVE SLEEP APNEA (ADULT) (PEDIATRIC) Status: Chronic Priority: Low Current Visit: Yes (6) Osteoarthritis SNOMED Code(s): 047541456 ICD Code: M19.90 - UNSPECIFIED OSTEOARTHRITIS, UNSPECIFIED SITE Status: Chronic Priority: Low Current Visit: No Qualifiers: Osteoarthritis location: unspecified site Osteoarthritis type: primary Qualified Code(s): M19.91 - Primary osteoarthritis, unspecified site (7) Asthma SNOMED Code(s): 505320494 ICD Code: J45.909 - UNSPECIFIED ASTHMA, UNCOMPLICATED Status: Chronic Priority: Low Current Visit: No Qualifiers: Asthma severity: mild Asthma persistence: unspecified Asthma complication type: unspecified Qualified Code(s): J45.998 - Other asthma (8) A-fib SNOMED Code(s): 73598939 ICD Code: I48.91 - UNSPECIFIED ATRIAL FIBRILLATION Status: Chronic Priority: Medium Current Visit: Yes Qualifiers: Atrial fibrillation type: chronic Qualified Code(s): I48.2 - Chronic atrial fibrillation (9) HTN (hypertension) SNOMED Code(s): 44275514 ICD Code: I10 - ESSENTIAL (PRIMARY) HYPERTENSION Status: Chronic Priority : Low Current Visit: No Qualifiers: Hypertension type: essential hypertension Qualified Code(s): I10 - Essential (primary) hypertension (10) Other cardiomyopathies SNOMED Code(s): 81990850 ICD Code: I42.8 - OTHER CARDIOMYOPATHIES Status: Chronic Priority: Medium Current Visit: No (11) BPH (benign prostatic hyperplasia) SNOMED Code(s): 537695487 ICD Code: N40.0 - BENIGN PROSTATIC HYPERPLASIA WITHOUT LOWER URINRY TRACT SYMP Status: Chronic Priority: Low Current Visit: No Qualifiers: Lower urinary tract symptom presence: unspecified whether lower urinary tract symptoms present Qualified Code(s): N40.0 - Benign prostatic hyperplasia without lower urinary tract symptoms (12) CAD (coronary artery disease) SNOMED Code(s): 73239997 ICD Code: I25.10 - ATHSCL HEART DISEASE OF [place] CORONARY ARTERY W/O ANG PCTRS Status: Chronic Priority: Medium Current Visit: No Qualifiers: Coronary Disease-Associated Artery/Lesion type: bypass graft [place] vs. transplanted heart: kaibab heart Associated angina: angina presence unspecified Qualified Code(s): I25.810 - Atherosclerosis of coronary artery bypass graft(s) without angina pectoris - Patient Summary/Data Operative Procedure(s) Performed: Esophagogastroduodenoscopy Consults: Consultations 08/11/17 16:14 Consult to Case Management [CONS] Routine Consult to Physician [CONS] Routine Consult to Housing Specialist [CONS] Routine Consult to Spiritual Care [CONS] Routine OT Evaluation and Treatment [CONS] Routine PT Evaluation and Treatment [CONS] Routine Hospital Course: I/P: Acute: GI bleeding -Reports melonic stools for 2 days prior to coming to ed -BRBPR morning of admission -Denies abdominal pain, dyspepsia, heartburn -On ASA and Pradexa - hold -Recently placed pacemaker/defibrilator and CABGx4 -No hx/o colon cancer, ulcers, GI bleeding -Last colonoscopy 10+ years ago -Hgb 7.2 in ED-->7.4-->7.5-->7.8 -Heme positive maroon stool in ED -2 units PRBC given in ED and on floor - lasix given after-> 3 more units given -Clear liquid diet -Dr Ortega consulted - planning on colonoscopy/EGD on Tuesday -Expedited EGD today (08/12/17); no colonoscopy -Off blood thinners -Bowel prep per Dr. Ortega orders -Non-bleeding ulcers noted at duodenal junction -PPI daily -Monitor AM labs Anemia -2/2 above -Received 2 units in ED - 3 on floor -Other orders as above Chronic: S/P CABGx4 S/P pacemaker/ICD placement KAYDEN - home CPAP OA A-fib - hold blood thinners for now BPH CAD Plan: Admit to medical floor on telemetry CM/SW for discharge planning - resident of [facility] stay currently PT/OT GI prophylaxis: PPI DVT/PE prophylaxis: KATT hose - No blood thinners due to bleed, No SCDs due to recent vein stripping Other orders as indicated above Home meds as ordered Routine AM labs Code status: Full code; PCP: Dr. Love at [place]; Cardiology: Dr. Meyer; CT surgeon: Dr. Alvarez Unfortunately Mr. Worrell continued to have rectal bleeding. Praxbind was given with little effect. He continued to feel lightheaded and dizzy, especially with motion. EGD was preformed today by general surgery and ulcers at the duodenal junction were noted. These were not actively bleeding. His Hgb remained in the low to mid 7's despite having 5 units transfused. He has been mildly tachycardic and bloodpressures have remained good. He did receive lasix after all his units while he was in the ICU here. He will be transferred via ground ALS ambulance to in [place]. Dr. Paulino, ER physician has accepted care. - Discharge Plan Home Medications: Home Meds Acetaminophen [Tylenol] 650 mg PO Q6H PRN 08/11/17 [History] Aspirin 325 mg PO DAILY 08/11/17 [History] Calcium Carbonate [Tums] 600 mg PO QID PRN 08/11/17 [History] Dabigatran Etexilate Mesylate [Pradaxa] 150 mg PO BID 08/11/17 [History] Famotidine 20 mg PO BID 08/11/17 [History] Furosemide 40 mg PO BID 08/11/17 [History] Hydrochlorothiazide 25 mg PO DAILY 08/11/17 [History] Latanoprost [Xalatan 0.005% Ophth Soln] 1 drop EYEBOTH BEDTIME 08/11/17 [History ] Losartan [Cozaar] 100 mg PO DAILY 08/11/17 [History] Metoprolol Tartrate [Lopressor] 50 mg PO BID 08/11/17 [History] Multivit-Min/FA/Lycopene/Lut [Certavite Sr-Antioxidant Tab] 1 tab PO DAILY 08/11 [History] Mupirocin Calcium [Bactroban] 1 applic TOP BID 08/11/17 [History] [place] Nasal [place] 2 spray INH BEDTIME 08/11/17 [History] Potassium Chloride 40 meq PO BEDTIME 08/11/17 [History] Potassium Chloride 80 meq PO BID 08/11/17 [History] Sennosides/Docusate Sodium [Senna-Docusate Sodium] 1 tab PO BID 08/11/17 [ History] Tamsulosin [Flomax] 0.4 mg PO BEDTIME 08/11/17 [History] Vit A,C & E/Lutein/Minerals [Healthy Eyes] 1 tab PO DAILY 08/11/17 [History] amLODIPine [Norvasc] 2.5 mg PO DAILY 08/11/17 [History] atorvaSTATin [Lipitor] 40 mg PO BEDTIME 08/11/17 [History] Forms: ED Department Discharge Referrals: Bill Love MD [Primary Care Provider] - - Discharge Summary/Plan Comment DC Time >30 min.: Yes (45 minutes ) - General Info Date of Service: 08/12/17 Subjective Update: In to see Abiodun. He is lying in ICU bed. He still is quite pale. He reports dizziness and lightheadedness when sitting up. Hemoglobin has not improved very much. He has had 5 units while here and there starting the 6 just prior to ambulance transport. He will be transferred to [facility] in [place]. He is requesting not to go back to [facility] as he had a significant cardiac event there. We will honor this request. Functional Status: Reports: Pain Controlled, Tolerating Diet, Urinating. Denies : Ambulating - Review of Systems General: Reports: Weakness, Fatigue, Malaise. Denies: Fever, Chills, Appetite HEENT: Reports: No Symptoms Pulmonary: Denies: Shortness of Breath, Cough, Sputum, Wheezing Cardiovascular: Reports: Lightheadedness (especially while standing ). Denies: Chest Pain, Palpitations, Edema Gastrointestinal: Reports: Decreased Appetite, Diarrhea, Flatus, Hematochezia, Melena. Denies: Abdominal Pain, Constipation, Nausea, Vomiting Genitourinary: Reports: No Symptoms. Denies: Dysuria, Frequency, Burning, Pain Musculoskeletal: Reports: No Symptoms Skin: Reports: Pallor. Denies: Cyanosis, Jaundice, Mottled Neurological: Reports: No Symptoms Psychiatric: Reports: No Symptoms - Patient Data Vitals - Most Recent: Last Vital Signs Temp 98.6 F 08/12/17 15:56 Pulse 96 08/12/17 12:46 Resp 18 08/12/17 15:56 BP 122/97 H 08/12/17 15:56 Pulse Ox 97 08/12/17 16:15 Weight - Most Recent: 276 lb 9.6 oz I&O - Last 24 hours: Intake & Output 08/12/17 08/12/17 08/12/17 06:59 14:59 22:59 Intake Total 715 380 0 Output Total 700 Balance 15 380 0 Lab Results - Last 24 hrs: Laboratory Results - last 24 hr 08/11/17 08/11/17 08/11/17 Range/Units 20:51 20:51 20:51 WBC (4.23-9.07) K/mm3 RBC (4.63-6.08) M/mm3 Hgb 7.4 L (13.7-17.5) gm/L Hct 22.5 L (40.1-51.0) % MCV (79.0-92.2) fl MCH (25.7-32.2) pg MCHC (32.2-35.5) g/dl RDW Std Deviation (35.1-43.9) fL Plt Count (163-337) K/mm3 MPV (9.4-12.3) fl Neut % (Auto) (34.0-67.9) % Lymph % (Auto) (21.8-53.1) % [place] % (Auto) (5.3-12.2) % Eos % (Auto) (0.8-7.0) Baso % (Auto) (0.1-1.2) % Neut # (Auto) (1.78-5.38) K/mm3 Lymph # (Auto) (1.32-3.57) K/mm3 [place] # (Auto) (0.30-0.82) K/mm3 Eos # (Auto) (0.04-0.54) K/mm3 Baso # (Auto) (0.01-0.08) K/mm3 Manual Slide Review PT 12.7 (8.0-13.0) SECONDS INR 1.18 APTT 32 (22-36) SECONDS Sodium (136-145) mEq/L Potassium (3.5-5.1) mEq/L Chloride (98-107) mEq/L Carbon Dioxide (21-32) mEq/L Anion Gap (5-15) BUN (7-18) mg/dL Creatinine (0.7-1.3) mg/dL Est Cr Clr Drug Dosing mL/min Estimated GFR (MDRD) (>60) mL/min BUN/Creatinine Ratio (14-18) Glucose (83-115) mg/dL Calcium (8.5-10.1) mg/dL Magnesium (1.8-2.4) mg/dl C-Reactive Protein (<1.0) mg/dL NT-Pro-B Natriuret Pep (0-450) pg/mL Blood Type A NEGATIVE Gel Antibody Screen Negative Crossmatch See Detail 03/23/18 03/23/18 03/23/18 Range/Units 13:20 13:20 13:20 WBC 11.37 H (4.23-9.07) K/mm3 RBC 2.61 L (4.63-6.08) M/mm3 Hgb 7.5 L (13.7-17.5) gm/L Hct 22.8 L (40.1-51.0) % MCV 87.4 (79.0-92.2) fl MCH 28.7 (25.7-32.2) pg MCHC 32.9 (32.2-35.5) g/dl RDW Std Deviation 46.4 H (35.1-43.9) fL Plt Count 275 (163-337) K/mm3 MPV 9.9 (9.4-12.3) fl Neut % (Auto) 74.8 H (34.0-67.9) % Lymph % (Auto) 17.0 L (21.8-53.1) % [place] % (Auto) 7.2 (5.3-12.2) % Eos % (Auto) 0.1 L (0.8-7.0) Baso % (Auto) 0.1 (0.1-1.2) % Neut # (Auto) 8.51 H (1.78-5.38) K/mm3 Lymph # (Auto) 1.93 (1.32-3.57) K/mm3 [place] # (Auto) 0.82 (0.30-0.82) K/mm3 Eos # (Auto) 0.01 L (0.04-0.54) K/mm3 Baso # (Auto) 0.01 (0.01-0.08) K/mm3 Manual Slide Review Abnormal smear PT (8.0-13.0) SECONDS INR APTT (22-36) SECONDS Sodium 139 (136-145) mEq/L Potassium 4.1 (3.5-5.1) mEq/L Chloride 105 (98-107) mEq/L Carbon Dioxide 25 (21-32) mEq/L Anion Gap 13.1 (5-15) BUN 46 H (7-18) mg/dL Creatinine 1.2 (0.7-1.3) mg/dL Est Cr Clr Drug Dosing 58.27 mL/min Estimated GFR (MDRD) 58 (>60) mL/min BUN/Creatinine Ratio 38.3 H (14-18) Glucose 155 H (83-115) mg/dL Calcium 7.7 L (8.5-10.1) mg/dL Magnesium 1.8 (1.8-2.4) mg/dl C-Reactive Protein 1.3 H* (<1.0) mg/dL NT-Pro-B Natriuret Pep 775 H (0-450) pg/mL Blood Type Gel Antibody Screen Crossmatch 08/12/17 08/12/17 Range/Units 17:28 17:28 WBC 11.56 H (4.23-9.07) K/mm3 RBC 2.70 L (4.63-6.08) M/mm3 Hgb 7.8 L (13.7-17.5) gm/L Hct 23.5 L (40.1-51.0) % MCV 87.0 (79.0-92.2) fl MCH 28.9 (25.7-32.2) pg MCHC 33.2 (32.2-35.5) g/dl RDW Std Deviation 45.3 H (35.1-43.9) fL Plt Count 280 (163-337) K/mm3 MPV 10.0 (9.4-12.3) fl Neut % (Auto) 73.9 H (34.0-67.9) % Lymph % (Auto) 17.0 L (21.8-53.1) % [place] % (Auto) 7.8 (5.3-12.2) % Eos % (Auto) 0.2 L (0.8-7.0) Baso % (Auto) 0.2 (0.1-1.2) % Neut # (Auto) 8.55 H (1.78-5.38) K/mm3 Lymph # (Auto) 1.97 (1.32-3.57) K/mm3 [place] # (Auto) 0.90 H (0.30-0.82) K/mm3 Eos # (Auto) 0.02 L (0.04-0.54) K/mm3 Baso # (Auto) 0.02 (0.01-0.08) K/mm3 Manual Slide Review PT 11.4 (8.0-13.0) SECONDS INR 1.06 APTT (22-36) SECONDS Sodium (136-145) mEq/L Potassium (3.5-5.1) mEq/L Chloride (98-107) mEq/L Carbon Dioxide (21-32) mEq/L Anion Gap (5-15) BUN (7-18) mg/dL Creatinine (0.7-1.3) mg/dL Est Cr Clr Drug Dosing mL/min Estimated GFR (MDRD) (>60) mL/min BUN/Creatinine Ratio (14-18) Glucose (83-115) mg/dL Calcium (8.5-10.1) mg/dL Magnesium (1.8-2.4) mg/dl C-Reactive Protein (<1.0) mg/dL NT-Pro-B Natriuret Pep (0-450) pg/mL Blood Type Gel Antibody Screen Crossmatch Med Orders - Current: Current Medications Acetaminophen (Tylenol) 650 mg PO Q4H PRN PRN Reason: Pain (Mild 1-3)/fever Hydrocodone Bitart/Acetaminophen ([place] 325-5 Mg) 1 tab PO Q4H PRN PRN Reason: Pain (moderate 4-6) Furosemide (Lasix) 20 mg IVPUSH Q4HR [facility] Stop: 08/12/17 21:01 Hydralazine HCl (Apresoline) 10 mg IVPUSH Q6H PRN PRN Reason: Hypertension Sodium Chloride (Normal Saline) 1,000 mls @ 150 mls/hr IV ASDIRECTED [facility] Last Admin: 08/11/17 11:15 Dose: 150 mls/hr Desmopressin Acetate 38 mcg/ (Sodium Chloride) 59.5 mls @ 119 mls/hr IV ONETIME ONE Stop: 08/12/17 18:29 Metoprolol Tartrate (Lopressor) 5 mg IVPUSH Q4H PRN PRN Reason: Tachycardia Ondansetron HCl (Zofran Odt) 4 mg PO Q6H PRN PRN Reason: nausea, able to take PO Ondansetron HCl (Zofran) 4 mg IV Q6H PRN PRN Reason: Nausea/Vomiting Pantoprazole Sodium (Protonix) 40 mg PO DAILY [facility] Last Admin: 08/12/17 10:15 Dose: Not Given Sodium Chloride (Saline Flush) 10 ml FLUSH ASDIRECTED PRN PRN Reason: Keep Vein Open Last Admin: 08/11/17 11:15 Dose: 10 ml Discontinued Medications Bisacodyl (Dulcolax) 30 mg PO ONETIME ONE Stop: 08/12/17 09:26 Last Admin: 08/12/17 09:47 Dose: 30 mg Thrombin 50,000 unit/ Sterile (Water 1,000 ml) 0 unit RECTAL ONETIME ONE Stop: 08/11/17 22:03 Last Admin: 08/12/17 01:24 Dose: Not Given Famotidine (Pepcid) 20 mg IVPUSH ONETIME ONE Stop: 08/11/17 10:56 Last Admin: 08/11/17 11:17 Dose: 20 mg Fentanyl (Sublimaze) Confirm Administered Dose 100 mcg .ROUTE .STK-MED ONE Stop: 08/12/17 10:55 Furosemide (Lasix) 20 mg IVPUSH NOW ONE Stop: 08/11/17 15:46 Last Admin: 08/11/17 15:58 Dose: 20 mg Furosemide (Lasix) 20 mg IVPUSH NOW ONE Stop: 08/11/17 19:30 Last Admin: 08/11/17 19:57 Dose: 20 mg Furosemide (Lasix) 40 mg IVPUSH ONETIME ONE Stop: 08/12/17 05:54 Last Admin: 08/12/17 06:04 Dose: 40 mg Sodium Chloride (Normal Saline) 250 mls @ 250 mls/hr IV ASDIRECTED [facility] Last Admin: 08/12/17 06:37 Dose: 250 mls/hr Lidocaine HCl (Xylocaine-Mpf 1%) Confirm Administered Dose 6 mls @ as directed .ROUTE .STK-MED ONE Stop: 08/12/17 10:54 Magnesium Sulfate 2 gm/ Premix 50 mls @ 25 mls/hr IV ONETIME ONE Stop: 08/12/17 17:48 Last Admin: 08/12/17 17:38 Dose: 25 mls/hr Magnesium Citrate (Citrate Of Magnesia) 296 ml PO ONETIME ONE Stop: 08/12/17 09:05 Last Admin: 08/12/17 09:47 Dose: 296 ml Pantoprazole Sodium (Protonix Iv) 40 mg IVPUSH ONETIME ONE Stop: 08/11/17 10:56 Last Admin: 08/11/17 11:21 Dose: 40 mg Propofol (Diprivan 20 Ml) Confirm Administered Dose 200 mg .ROUTE .[place]azar ONE Stop: 08/12/17 10:54 - Exam Quality Assessment: Reports: Supplemental Oxygen, DVT Prophylaxis General: Reports: Alert, Oriented, Cooperative, No Acute Distress HEENT: Reports: Pupils Equal, Pupils Reactive, EOMI, Mucous Membr. Moist/[place] Neck: Reports: Supple, Trachea Midline Lungs: Reports: Clear to Auscultation, Normal Respiratory Effort Cardiovascular: Reports: Irregular Rhythm GI/Abdominal Exam: Soft, Non-Tender, No Organomegaly, No Distention, No Abnormal Bruit, No Mass, Pelvis Stable, Abnormal Bowel Sounds (hyperactive ) (Male) Exam: Deferred Rectal (Males) Exam: Deferred Extremities: Normal Inspection, Normal Range of Motion, Non-Tender, No Pedal Edema, Normal Capillary Refill Skin: Reports: Warm, Dry, Intact, Other (pale ) Neurological: Reports: No New Focal Deficit Psy/Mental Status: Reports: Alert, Normal Affect, Normal Mood *Q Meaningful Use (DIS) - VTE *Q VTE Criteria *Q: - Stroke *Q Stroke Criteria *Q: - AMI *Q AMI Criteria *Q:
[2017-08-12] MEDS ORDERED: Furosemide 20 MG/2 ML VIAL IVPUSH SCH (18:00)
[2017-08-12] MEDS: DESMOPRESSIN IV ONE ×2 (18:20)
[2017-08-12] MEDS: SODIUM CHLORIDE 0.9% IV ONE ×2 (18:20)
== END 2017-08-12 18:56 | DRG 378 ==
LOC: SUPCPDRO 10:28 → JD.ED 10:28 → JD.MS 13:33 → JD.ICU 20:43
PROVIDERS: ADMIT Internal Medicine Cardiovascular Disease; ATTEND Internal Medicine Cardiovascular Disease
PROC: 30233N1 Transfusion of Nonautologous Red Blood Cells into Peripheral Vein, Percutaneous Approach (ICD-10-PCS; principal; 2017-08-11)
PROC: 0DJ08ZZ Inspection of Upper Intestinal Tract, Via Natural or Artificial Opening Endoscopic (ICD-10-PCS; 2017-08-12)
DX: K92.1 Melena (principal); D62 Acute posthemorrhagic anemia; R06.02 Shortness of breath; I42.8 Other cardiomyopathies; I25.810 Atherosclerosis of coronary artery bypass graft(s) without angina pectoris; K26.9 Duodenal ulcer, unspecified as acute or chronic, without hemorrhage or perforation; Z95.1 Presence of aortocoronary bypass graft; Z95.810 Presence of automatic (implantable) cardiac defibrillator; Z95.0 Presence of cardiac pacemaker; G47.33 Obstructive sleep apnea (adult) (pediatric); M19.90 Unspecified osteoarthritis, unspecified site; J45.909 Unspecified asthma, uncomplicated; I48.91 Unspecified atrial fibrillation; I10 Essential (primary) hypertension; N40.0 Benign prostatic hyperplasia without lower urinary tract symptoms; H54.7 Unspecified visual loss; G89.29 Other chronic pain; M54.9 Dorsalgia, unspecified; Z87.891 Personal history of nicotine dependence; Z79.82 Long term (current) use of aspirin; Z79.899 Other long term (current) drug therapy
CPT/HCPCS: 36415; 36430; 71045; 80053; 83880; 84484; 85025; 86850; 86900; 86901; 86922; 93005; 96374; 96375; 99285; C9113; J7040; J7050; P9016; 80048; 83516; 83735; 85014; 85018; 85610; 85730; 86140; 87641; 99223; 99239; A9270-GY; J1940; J2597; J2704; J3010; J3475

== ENCOUNTER 2017-08-23 09:25 | Emergency (ER) | payer MEDICARE, BC ==
[2017-08-23 09:39] VITALS: BP 137/58
--- NOTE | 2017-08-23 10:39 | EDM.PDOC ---
ED HPI GENERAL MEDICAL PROBLEM - General Chief Complaint: Respiratory Problem Stated Complaint: SOB Time Seen by Provider: 08/23/17 09:41 Source of Information: Reports: Patient, Family () History Limitations: Reports: No Limitations - History of Present Illness INITIAL COMMENTS - FREE TEXT/NARRATIVE: The patient underwent a CABG 4 on 07/19/[address] [facility]. According to the patient's , there was a "ruptured graft" the following day, 07/20/2017, causing the patient to suffer a VA. Postoperative atrial fibrillation prompted placement of a dual-chamber pacemaker on 07/21/2017. According to the patient's , the patient has been dyspneic with exertion since 08/06/2017, initially thought secondary to anemia. He was seen in this ED on 08/11/2017 for a GI bleed. His initial hemoglobin was found to be 7.1. He was given a total 4 units of PRBCs. An EGD per Dr. Ortega performed on 08/12/2017 found a duodenal ulcer. His Pradaxa was reversed with Praxbind, and he has not been restarted on an anticoagulant since. The patient was then transferred to [facility] on 08/12/2017. The patient states that receiving PRBCs did not improve his dyspnea on exertion. He was subsequently started on oral iron and potassium chloride, without improvement. He now presents stating that he was instructed to come to the ED if his symptoms did not improve. He states they are no worse, just not better. The patient denies associated fever, cough, orthopnea, or pain. He denies recurrence of his GI bleed. The patient's PCP is Dr. Love. The patient has not followed up with him. - Related Data Allergies Allergy/AdvReac Type Severity Reaction Status Date / Time No Known Allergies Allergy Verified 08/23/17 09:42 Home Meds: Home Meds Acetaminophen [Tylenol] 650 mg PO Q6H PRN 08/11/17 [History] Aspirin 325 mg PO DAILY 08/11/17 [History] Calcium Carbonate [Tums] 600 mg PO QID PRN 08/11/17 [History] Famotidine 20 mg PO BID 08/11/17 [History] Furosemide 40 mg PO BID 08/11/17 [History] Hydrochlorothiazide 25 mg PO DAILY 08/11/17 [History] Latanoprost [Xalatan 0.005% Ophth Soln] 1 drop EYEBOTH BEDTIME 08/11/17 [History ] Metoprolol Tartrate [Lopressor] 50 mg PO QPM 08/11/17 [History] Multivit-Min/FA/Lycopene/Lut [Certavite Sr-Antioxidant Tab] 1 tab PO DAILY 08/11 [History] Potassium Chloride 80 meq PO TID 08/11/17 [History] Sennosides/Docusate Sodium [Senna-Docusate Sodium] 1 tab PO BID 08/11/17 [ History] Tamsulosin [Flomax] 0.4 mg PO BEDTIME 08/11/17 [History] Vit A,C & E/Lutein/Minerals [Healthy Eyes] 1 tab PO DAILY 08/11/17 [History] Cholecalciferol (Vitamin D3) [Vitamin D3] 2,000 unit PO DAILY 08/23/17 [History] Ferrous Sulfate [Iron] 325 mg PO BID 08/23/17 [History] Fish Oil/[place]-3 Fatty Acids [Fish Oil 1,000 MG] 1 cap PO BID 08/23/17 [History] Garlic [Garlique] 5,000 mcg PO DAILY 08/23/17 [History] Past Medical History HEENT History: Reports: Cataract, Impaired Vision Other HEENT History: wears eyeglasses Cardiovascular History: Reports: Afib (chronic), Arrhythmia (Ventricular bigeminy), CAD, Hypertension, VA (07/20/2017) Respiratory History: Reports: Sleep Apnea (on CPAP 10 nightly) Gastrointestinal History: Reports: Colon Polyp, PUD (DU 08/12/2017) Genitourinary History: Reports: BPH Musculoskeletal History: Reports: Back Pain, Chronic Neurological History: Reports: Concussion Endocrine/Metabolic History: Reports: Obesity/BMI 30+ - Infectious Disease History Infectious Disease History: Reports: Chicken Pox, Measles, Mumps - Past Surgical History HEENT Surgical History: Reports: Cataract Surgery Cardiovascular Surgical History: Reports: Cardiac Ablation (for V-bigeminy, around 2011), Coronary Artery Bypass (x 4 vessel 07/19/2017), Pacer (07/21/2017), Vascular Surgery (left wrist artery repair) GI Surgical History: Reports: Cholecystectomy, Colonoscopy, EGD Musculoskeletal Surgical History: Reports: Knee Replacement (bilateral) Social & Family History - Tobacco Use Smoking Status *Q: Former Smoker Month/Year Tobacco Last Used: Quit 1979 Second Hand Smoke Exposure: No - Caffeine Use Caffeine Use: Reports: Coffee, Tea - Recreational Drug Use Recreational Drug Use: No - Living Situation & Occupation Living situation: Reports: , with Spouse Occupation: Retired ED ROS GENERAL - Review of Systems Review Of Systems: ROS reveals no pertinent complaints other than HPI. ED EXAM, GENERAL - Physical Exam Exam: See Below Exam Limited By: No Limitations General Appearance: Alert, WD/WN, No Apparent Distress Eye Exam: Bilateral Eye: Normal Inspection Ears: Normal External Exam, Hearing Grossly Normal Nose: Normal Inspection, No Blood Throat/Mouth: Normal Inspection, Normal Lips, Normal Voice, No Airway Compromise Head: Atraumatic, Normocephalic Neck: Normal Inspection, Full Range of Motion Respiratory/Chest: No Respiratory Distress, Lungs Clear, Normal Breath Sounds, No Accessory Muscle Use. No: Decreased Breath Sounds, Crackles, Rhonchi, Wheezing, Prolonged Expiration Cardiovascular: Normal Peripheral Pulses, No Gallop, No JVD, No Murmur, No Rub, Irregularly Irregular (regular rate) Peripheral Pulses: 3+: Radial (L), Radial (R) GI/Abdominal: Normal Bowel Sounds, Soft, Non-Tender, No Organomegaly, No Distention, No Abnormal Bruit, No Mass, Other (Obese) (Male) Exam: Deferred Rectal (Males) Exam: Deferred Back Exam: Normal Inspection, Full Range of Motion, NT Extremities: Normal Inspection, Normal Range of Motion, Normal Capillary Refill , Other (1-2+ pretibial pitting edema bilaterally) Neurological: Alert, Oriented, Normal Cognition, No Motor/Sensory Deficits Psychiatric: Normal Affect Skin Exam: Warm, Dry, Intact, Normal Color, No Rash Lymphatic: No Adenopathy EKG INTERPRETATION EKG Date: 08/23/17 Time: 09:36 Rhythm: Other (A-fib with frequent V-paced beats. [place] beats appear to have IVCD, LAD) Rate (Beats/Min): 102 Comparison: No Change (08/11/2017) Course - Vital Signs Last Recorded V/S: Last Vital Signs Temp 36.3 C 08/23/17 09:29 Pulse 90 08/23/17 09:29 Resp 19 08/23/17 09:29 BP 137/58 L 08/23/17 09:29 Pulse Ox 96 08/23/17 09:29 - Orders/Labs/Meds Orders: Active Orders 24 hr Category Date Time Status EKG Documentation Completion [RC] STAT Care 08/23/17 09:58 Active CULTURE BLOOD [BC] Stat Lab 08/23/17 10:18 Received CULTURE BLOOD [BC] Stat Lab 08/23/17 10:32 Received Blood Culture x2 Reflex Set [OM.PC] Stat Oth 08/23/17 09:58 Ordered Labs: Laboratory Tests 08/23/17 08/23/17 08/23/17 Range/Units 10:05 10:05 10:05 WBC 7.94 (4.23-9.07) K/mm3 RBC 2.70 L (4.63-6.08) M/mm3 Hgb 7.6 L (13.7-17.5) gm/L Hct 24.9 L (40.1-51.0) % MCV 92.2 (79.0-92.2) fl MCH 28.1 (25.7-32.2) pg MCHC 30.5 L (32.2-35.5) g/dl RDW Std Deviation 53.2 H (35.1-43.9) fL Plt Count 502 H (163-337) K/mm3 MPV 9.6 (9.4-12.3) fl Neutrophils % (Manual) 78 H (40-60) % Band Neutrophils % 0 (0-10) % Lymphocytes % (Manual) 19 L (20-40) % Atypical Lymphs % 0 % Monocytes % (Manual) 0 L (2-10) % Eosinophils % (Manual) 2 (0.8-7.0) % Basophils % (Manual) 1 (0.2-1.2) Platelet Estimate See note Polychromasia 2+ moderate Hypochromasia 1+ slight Poikilocytosis 1+ slight Anisocytosis 2+ moderate RBC Morph Comment Not Reportable PT 10.4 (8.0-13.0) SECONDS INR 0.97 APTT 26 (22-36) SECONDS D-Dimer, Quantitative 8.43 H (0.19-0.59) mg/L Puncture Site ABG pH (7.35-7.45) ABG pCO2 (35.0-45.0) mmHg ABG pO2 (80.0-100.0) mmHg ABG HCO3 (22.0-26.0) meq/L ABG O2 Saturation (96.0-97.0) % ABG Base Excess (-2-2.0) [place] Test A-a Gradient mmHg O2 Delivery Device FiO2 (21.00-100.00) % Sodium 145 (136-145) mEq/L Potassium 4.2 (3.5-5.1) mEq/L Chloride 108 H (98-107) mEq/L Carbon Dioxide 25 (21-32) mEq/L Anion Gap 16.2 H (5-15) BUN 14 (7-18) mg/dL Creatinine 1.1 (0.7-1.3) mg/dL Est Cr Clr Drug Dosing 58.51 mL/min Estimated GFR (MDRD) > 60 (>60) mL/min BUN/Creatinine Ratio 12.7 L (14-18) Glucose 145 H (83-115) mg/dL Lactic Acid (0.4-2.0) mmol/L Calcium 8.9 (8.5-10.1) mg/dL Total Bilirubin 0.4 (0.2-1.0) mg/dL AST 34 (15-37) U/L ALT 64 H (16-63) U/L Alkaline Phosphatase 99 (46-116) U/L Troponin I 0.038 (0.00-0.056) ng/mL NT-Pro-B Natriuret Pep (0-450) pg/mL Total Protein 6.0 L (6.4-8.2) g/dl Albumin 2.3 L (3.4-5.0) g/dl Globulin 3.7 gm/dL Albumin/Globulin Ratio 0.6 L (1-2) 08/23/17 08/23/17 08/23/17 Range/Units 10:05 10:18 10:18 WBC (4.23-9.07) K/mm3 RBC (4.63-6.08) M/mm3 Hgb (13.7-17.5) gm/L Hct (40.1-51.0) % MCV (79.0-92.2) fl MCH (25.7-32.2) pg MCHC (32.2-35.5) g/dl RDW Std Deviation (35.1-43.9) fL Plt Count (163-337) K/mm3 MPV (9.4-12.3) fl Neutrophils % (Manual) (40-60) % Band Neutrophils % (0-10) % Lymphocytes % (Manual) (20-40) % Atypical Lymphs % % Monocytes % (Manual) (2-10) % Eosinophils % (Manual) (0.8-7.0) % Basophils % (Manual) (0.2-1.2) Platelet Estimate Polychromasia Hypochromasia Poikilocytosis Anisocytosis RBC Morph Comment PT (8.0-13.0) SECONDS INR APTT (22-36) SECONDS D-Dimer, Quantitative (0.19-0.59) mg/L Puncture Site Rt radial ABG pH 7.49 H (7.35-7.45) ABG pCO2 31.5 L (35.0-45.0) mmHg ABG pO2 68.0 L (80.0-100.0) mmHg ABG HCO3 23.6 (22.0-26.0) meq/L ABG O2 Saturation 96.2 (96.0-97.0) % ABG Base Excess 0.8 (-2-2.0) [place] Test Positive A-a Gradient 27 mmHg O2 Delivery Device Room air FiO2 21.00 (21.00-100.00) % Sodium (136-145) mEq/L Potassium (3.5-5.1) mEq/L Chloride (98-107) mEq/L Carbon Dioxide (21-32) mEq/L Anion Gap (5-15) BUN (7-18) mg/dL Creatinine (0.7-1.3) mg/dL Est Cr Clr Drug Dosing mL/min Estimated GFR (MDRD) (>60) mL/min BUN/Creatinine Ratio (14-18) Glucose (83-115) mg/dL Lactic Acid 2.5 H (0.4-2.0) mmol/L Calcium (8.5-10.1) mg/dL Total Bilirubin (0.2-1.0) mg/dL AST (15-37) U/L ALT (16-63) U/L Alkaline Phosphatase (46-116) U/L Troponin I (0.00-0.056) ng/mL NT-Pro-B Natriuret Pep 2787 H (0-450) pg/mL Total Protein (6.4-8.2) g/dl Albumin (3.4-5.0) g/dl Globulin gm/dL Albumin/Globulin Ratio (1-2) Meds: Medications Discontinued Medications Generic Name Dose Route Start Last Admin Trade Name Freq PRN Reason Stop Dose Admin Sodium Chloride 1,000 mls @ 100 mls/hr 08/23/17 11:30 08/23/17 11:25 Normal Saline IV 100 mls/hr ASDIRECTED LORETTA Administration Sodium Chloride 100 mls @ 60 mls/hr 08/23/17 11:30 08/23/17 11:54 Normal Saline IV 60 mls/hr ASDIRECTED LORETTA Administration Iopamidol 100 ml 08/23/17 11:21 08/23/17 11:53 Isovue-370 (76%) IVPUSH 08/23/17 11:22 100 ml ONETIME ONE Administration Iopamidol 50 ml 08/23/17 11:21 08/23/17 11:54 Isovue-370 (76%) IVPUSH 08/23/17 11:22 10 ml ONETIME ONE Administration Sodium Chloride 10 ml 08/23/17 11:21 08/23/17 11:54 Saline Flush FLUSH 08/23/17 11:22 10 ml ONETIME ONE Administration - Re-Assessments/Exams Free Text/Narrative Re-Assessment/Exam: 08/23/17 10:48 Two-view chest radiograph reviewed. Cardiac silhouette is within normal limits. No pulmonary vascular congestion. There is likely a left-sided pleural effusion. No focal infiltrate. No pneumothorax. Left-sided 2-chamber pacer, left atrial appendage clip, CABG clips, and sternotomy wires are incidentally noted. Formal read per the Radiologist pending. 08/23/17 11:21 The patient's d-dimer has returned substantially elevated at 8.43. While this is likely due to his recent surgery, I have ordered a CT angiogram of the chest to rule out PE, since he is not on any anticoagulation. The patient's lactic acid level has returned mildly elevated at 2.5, although there are no other findings concerning for sepsis. The patient's bicarbonate level is normal. 2 sets of blood cultures have been obtained. 08/23/17 13:02 CT angiogram of the chest is read by Dr. George as: 1. Moderate size left-sided pleural effusion. 2. No findings of pulmonary emboli. 3. Other incidental findings as noted above. 08/23/17 13:23 Test results discussed with the patient and his . Today's workup reveals normocytic, hypochromic anemia with a hemoglobin of 7.6. The patient does not require a transfusion, however, I am recommending that he start taking his oral iron with oral vitamin C, to help increase absorption. He will be following up with his PCP, Dr. Love, on 08/29/2017. I am recommending an anemia workup at that time. I suspect that at least part of the patient's dyspnea on exertion may be related to the moderate left-sided pleural effusion. Whether or not the patient would derive benefit from thoracentesis is debatable. The patient is scheduled to follow-up with his Cardiothoracic Surgeon, Dr. Alvarez, on 09/01/2017. The patient's BNP is modestly elevated at 2787. I suspect that the patient has underlying CHF. Neither the patient nor his are aware of the patient having an echocardiogram done, but it would be unusual if he did not have one following his CABG/VA. The patient will be following up with his Computer Analyst Supervisor, Dr. Meyer, on 09/15/2017 - they can discuss an echocardiogram at that time. Departure - Departure Time of Disposition: 13:26 Disposition: Home, Self-Care 01 Condition: Good Clinical Impression: Dyspnea on exertion, Normocytic hypochromic anemia, Pleural effusion, left, Elevated brain natriuretic peptide (BNP) level - Discharge Information Instructions: Shortness of Breath, Adult, [id number], Pleural Effusion Referrals: Bill Love MD [Primary Care Provider] - Baljinder Meyer DO [Ordering Only Provider] - Moshe Alvarez MD [Ordering Only Provider] - Forms: ED Department Discharge Additional Instructions: You were seen in the emergency room for continued shortness of breath with exertion since 07/09/2017. Workup in the ER included blood work, 2 sets of blood cultures, an arterial blood gas, a chest x-ray, a CT angiogram of your chest, and an ECG. Your workup found that your hemoglobin is low at 7.6, hematocrit 24.9. This is not so low that you need a blood transfusion, however, we recommend that you follow-up with your PCP, Dr. Love, at your previously scheduled appointment on and have an anemia workup ordered, to find the exact cause of your anemia. In the meantime, we recommend that you start taking [id number] vitamin C 500 mg each time you take your oral iron. This will help increase the absorption of iron. Your chest x-ray and CT scan of your chest found that you have a moderate sized left-sided pleural effusion (fluid within your chest, outside your lung). This is common following bypass surgery. Discuss this with your Cardiothoracic Surgeon, Dr. Alvarez, when you see him on 09/01/2017. We suspect that you may be suffering from congestive heart failure - CHF - where your heart does not squeeze as hard as it used to. This is determined by an echocardiogram. We recommend that you discuss this with your Computer Analyst Supervisor, Dr. Meyer, when you see him at your previously scheduled appointment on 2017. The remainder of your workup was unremarkable. You have not suffered a heart attack. You do not have pneumonia. You do not have a blood clot in your lungs. You do not have a collapsed lung. If any other problems, please do not hesitate to return to the ER. - My Orders Last 24 Hours: My Active Orders 08/23/17 09:58 EKG Documentation Completion [RC] STAT Blood Culture x2 Reflex Set [OM.PC] Stat 08/23/17 10:18 CULTURE BLOOD [BC] Stat 08/23/17 10:32 CULTURE BLOOD [BC] Stat - Assessment/Plan Last 24 Hours: My Active Orders 08/23/17 09:58 EKG Documentation Completion [RC] STAT Blood Culture x2 Reflex Set [OM.PC] Stat 08/23/17 10:18 CULTURE BLOOD [BC] Stat 08/23/17 10:32 CULTURE BLOOD [BC] Stat
--- NOTE | 2017-08-23 11:11 | CR ---
Chest: Two views of the chest are obtained. Comparison: Prior chest x-ray of 08/11/17. Blunting of the posterior costophrenic angle is seen which is compatible with small pleural effusion. Minimal right basilar atelectasis is noted. Heart size is normal. Previous heart valve replacement is seen. Prior sternotomy is noted. Pacemaker is present. Lungs show no acute parenchymal change. Impression: 1. Blunting of the posterior costophrenic angle most likely representing small pleural effusion. 2. Other incidental findings as noted above. Diagnostic code #2
[2017-08-23] MEDS ORDERED: Iopamidol 755 MG/ML 50 ML Bottle IVPUSH ONE (11:21)
[2017-08-23] MEDS ORDERED: Iopamidol 755 Mg/ML 100 ML Bottle IVPUSH ONE (11:21)
[2017-08-23] MEDS: Sodium Chloride 0.9% 10 ML Syringe FLUSH ONE ×2 (11:28→11:54)
[2017-08-23] MEDS ORDERED: Sodium Chloride 0.9% 100 ML IV SCH (11:30)
[2017-08-23] MEDS ORDERED: Sodium Chloride 0.9% 1,000 ML IV SCH (11:30)
--- NOTE | 2017-08-23 12:31 | CT ---
CT chest Technique: Multiple axial sections were obtained through the chest. Intravenous contrast was utilized. Study has been performed as a pulmonary angiogram protocol. Comparison: No prior chest CT, prior chest x-ray of 08/23/17. Findings: Previous sternotomy is noted for CABG. Moderate size left-sided pleural effusion is noted. Heart is mildly enlarged. Pulmonary arteries are fairly well-opacified. No filling defects are seen to indicate pulmonary embolism. Aorta shows no aneurysmal dilatation or dissection. Scattered atherosclerotic calcification is noted within the aorta. Slight atelectasis is noted along the left major fissure. Atelectasis also seen on a compressive basis adjacent to the pleural effusion. Scattered small emphysematous blebs are seen along the pleural margins on both sides of the chest. Bone window settings were reviewed which appears within normal limits for the patient's age. Impression: 1. Moderate size left-sided pleural effusion. 2. No findings of pulmonary emboli. 3. Other incidental findings as noted above. Diagnostic code #3
== END 2017-08-23 13:55 | disposition home or self-care (01) ==
LOC: JD.ED 09:25
DX: D50.9 Iron deficiency anemia, unspecified (principal); J90 Pleural effusion, not elsewhere classified; R79.89 Other specified abnormal findings of blood chemistry; Z79.82 Long term (current) use of aspirin; Z79.899 Other long term (current) drug therapy; Z87.891 Personal history of nicotine dependence
CPT/HCPCS: 36415; 36600; 71046; 71275; 80053; 82803; 83605; 83880; 84484; 85025; 85379; 85610; 85730; 87040; 93005; 96360; 96361; 99285; J7030; J7040; J7050; Q9967; 93010; 99284-25

== ENCOUNTER 2017-10-19 06:19 | Emergency (ER) | payer MEDICARE, BC ==
--- NOTE | 2017-10-19 07:07 | EDM.PDOC ---
ED HPI GENERAL MEDICAL PROBLEM - General Chief Complaint: Abdominal Pain Stated Complaint: abdominal pain Time Seen by Provider: 10/19/17 06:53 Source of Information: Reports: Patient, Family (), RN, RN Notes Reviewed History Limitations: Reports: No Limitations - History of Present Illness INITIAL COMMENTS - FREE TEXT/NARRATIVE: The patient states that he developed left lower quadrant abdominal pain around 16:00 yesterday afternoon. It is achy in character. It waxes and wanes. The patient has not found that it is modifiable with position. Shortly prior to my coming into the patient's room, the patient reports developing left lower back pain. He denies recent fever, chills, nausea, vomiting, constipation, diarrhea, or urinary symptoms. No recent chest pain. The patient is chronically dyspneic, no worse than usual. The patient believes that he had similar symptoms once before, due to a pulled muscle. The patient has not tried any home remedies or [id number] medications. His last oral solid food was around 18:00 last evening. The patient's PCP is Dr. Love. Left Lower Abdomen Pain Score (Numeric/FACES): 7 - Related Data Allergies Allergy/AdvReac Type Severity Reaction Status Date / Time No Known Allergies Allergy Verified 10/19/17 06:29 Home Meds: Home Meds Aspirin 81 mg PO DAILY 08/11/17 [History] Famotidine 20 mg PO BID 08/11/17 [History] Furosemide 80 mg PO BID 08/11/17 [History] Latanoprost [Xalatan 0.005% Ophth Soln] 1 drop EYEBOTH BEDTIME 08/11/17 [History ] Potassium Chloride 20 meq PO DAILY 08/11/17 [History] Tamsulosin [Flomax] 0.4 mg PO BID 08/11/17 [History] Vit A,C & E/Lutein/Minerals [Healthy Eyes] 1 tab PO DAILY 08/11/17 [History] Ferrous Sulfate [Iron] 325 mg PO DAILY 08/23/17 [History] Fish Oil/Patterson-3 Fatty Acids [Fish Oil 1,000 MG] 1 cap PO BID 08/23/17 [History] Garlic [Garlique] 5,000 mcg PO DAILY 08/23/17 [History] Amiodarone HCl 200 mg PO DAILY 09/19/17 [History] Ascorbic Acid [Vitamin C] 500 mg PO BID 09/19/17 [History] Cholecalciferol (Vitamin D3) [Vitamin D] 400 units PO DAILY 09/19/17 [History] Isosorbide Mononitrate [Imdur] 30 mg PO DAILY 09/19/17 [History] Losartan [Cozaar] 25 mg PO DAILY 09/19/17 [History] Amoxicillin/Potassium Clav [Augmentin Xr 1,000-62.5 Tab] 1 tab PO Q12H #20 tab.er.12h 10/19/17 [Rx] Rosuvastatin [Crestor] 20 mg PO DAILY 10/19/17 [History] Past Medical History HEENT History: Reports: Impaired Vision Other HEENT History: wears eyeglasses Cardiovascular History: Reports: Afib (chronic), Arrhythmia (Ventricular bigeminy), CAD, Hypertension, ID (07/20/2017) Respiratory History: Reports: Sleep Apnea (nighly CPAP 10) Gastrointestinal History: Reports: Colon Polyp, GI Bleed, PUD (Duodenal ulcer) Genitourinary History: Reports: BPH Neurological History: Reports: Concussion Endocrine/Metabolic History: Reports: Obesity/BMI 30+ - Infectious Disease History Infectious Disease History: Reports: Chicken Pox, Measles, Mumps - Past Surgical History HEENT Surgical History: Reports: Cataract Surgery Cardiovascular Surgical History: Reports: Cardiac Ablation (2011), Coronary Artery Bypass (x 4, 07/19/2017), Pacer (07/21/2017), Vascular Surgery (left wrist artery repair) GI Surgical History: Reports: Cholecystectomy, Colonoscopy, EGD Musculoskeletal Surgical History: Reports: Knee Replacement (bilateral) Social & Family History - Family History Cardiac: Reports: ID Neurological: Reports: CVA Oncologic: Reports: Breast, Colon, Lung, Pancreatic, Prostate - Tobacco Use Smoking Status *Q: Former Smoker Years of Tobacco use: 65 Packs/Tins Daily: 1 Month/Year Tobacco Last Used: Quit 1979 - Caffeine Use Caffeine Use: Reports: Coffee - Alcohol Use Alcohol Use History: No - Recreational Drug Use Recreational Drug Use: No - Living Situation & Occupation Living situation: Reports: , with Spouse Occupation: Retired ED ROS GENERAL - Review of Systems Review Of Systems: ROS reveals no pertinent complaints other than HPI. ED EXAM, GI/ABD - Physical Exam Exam: See Below Exam Limited By: No Limitations General Appearance: Alert, WD/WN, No Apparent Distress Eyes: Bilateral: Normal Appearance, EOMI Ears: Normal External Exam, Hearing Grossly Normal Nose: Normal Inspection, No Blood Throat/Mouth: Normal Inspection, Normal Lips, Normal Voice, No Airway Compromise Head: Atraumatic, Normocephalic Neck: Normal Inspection, Full Range of Motion Respiratory/Chest: No Respiratory Distress, Lungs Clear, Normal Breath Sounds, No Accessory Muscle Use Cardiovascular: Normal Peripheral Pulses, No Edema, No Gallop, No JVD, No Murmur , No Rub, Irregularly Irregular (regular rate) GI/Abdominal Exam: Normal Bowel Sounds, Soft, No Organomegaly, No Distention, No Abnormal Bruit, No Mass, Tender (Left lower quadrant only. Nontender elsewhere.), Other (Obese) (Male) Exam: Deferred Rectal (Males) Exam: Deferred Back Exam: Normal Inspection, Full Range of Motion. No: CVA Tenderness (L) ( even to the lower left), CVA Tenderness (R) Extremities: Normal Inspection, Normal Range of Motion, Normal Capillary Refill Neurological: Alert, Oriented, Normal Cognition, No Motor/Sensory Deficits Psychiatric: Normal Affect Skin Exam: Warm, Dry, Intact, Normal Color, No Rash Course - Vital Signs Last Recorded V/S: Last Vital Signs Temp 36.4 C 10/19/17 06:24 Pulse 74 10/19/17 07:45 Resp 16 10/19/17 07:45 BP 128/64 10/19/17 07:45 Pulse Ox 95 10/19/17 07:45 - Orders/Labs/Meds Orders: Active Orders 24 hr Category Date Time Status CULTURE URINE [RM] Stat Lab 10/19/17 08:06 Ordered Sodium Chloride 0.9% [Normal Saline] 1,000 ml Med 10/19/17 07:15 Active IV ASDIRECTED Medication Orders Sodium Chloride (Normal Saline) 1,000 mls @ 150 mls/hr IV ASDIRECTED LORETTA Last Admin: 10/19/17 07:20 Dose: 150 mls/hr Labs: Laboratory Tests 10/19/17 10/19/17 10/19/17 Range/Units 06:55 07:15 07:15 WBC 7.43 (4.23-9.07) K/mm3 RBC 4.31 L (4.63-6.08) M/mm3 Hgb 11.4 L (13.7-17.5) gm/L Hct 36.2 L (40.1-51.0) % MCV 84.0 (79.0-92.2) fl MCH 26.5 (25.7-32.2) pg MCHC 31.5 L (32.2-35.5) g/dl RDW Std Deviation 42.8 (35.1-43.9) fL Plt Count 305 (163-337) K/mm3 MPV 9.6 (9.4-12.3) fl Neutrophils % (Manual) 67 H (40-60) % Band Neutrophils % 1 (0-10) % Lymphocytes % (Manual) 21 (20-40) % Atypical Lymphs % 0 % Monocytes % (Manual) 6 (2-10) % Eosinophils % (Manual) 5 (0.8-7.0) % Basophils % (Manual) 0 L (0.2-1.2) Platelet Estimate Adequate RBC Morph Comment Normal Sodium 137 (136-145) mEq/L Potassium 4.0 (3.5-5.1) mEq/L Chloride 104 (98-107) mEq/L Carbon Dioxide 24 (21-32) mEq/L Anion Gap 13.0 (5-15) BUN 15 (7-18) mg/dL Creatinine 1.0 (0.7-1.3) mg/dL Est Cr Clr Drug Dosing 69.92 mL/min Estimated GFR (MDRD) > 60 (>60) mL/min BUN/Creatinine Ratio 15.0 (14-18) Glucose 115 (83-115) mg/dL Calcium 8.8 (8.5-10.1) mg/dL Total Bilirubin 0.6 (0.2-1.0) mg/dL AST 15 (15-37) U/L ALT 21 (16-63) U/L Alkaline Phosphatase 84 (46-116) U/L Total Protein 7.1 (6.4-8.2) g/dl Albumin 3.0 L (3.4-5.0) g/dl Globulin 4.1 gm/dL Albumin/Globulin Ratio 0.7 L (1-2) Lipase 95 (73-393) U/L Urine Color Yellow (Yellow) Urine Appearance Cloudy H (Clear) Urine pH 7.0 (5.0-8.0) Ur Specific [place] 1.025 (1.005-1.030) Urine Protein 2+ H (Negative) Urine Glucose (UA) Negative (Negative) Urine Ketones Negative (Negative) Urine Occult Blood Trace-intact H (Negative) Urine Nitrite Positive H (Negative) Urine Bilirubin Negative (Negative) Urine Urobilinogen 0.2 (0.2-1.0) Ur Leukocyte Esterase 2+ H (Negative) Urine RBC 0-5 (0-5) /hpf Urine WBC 20-30 H (0-5) /hpf Urine WBC Clumps Few (NOT SEEN) /hpf Ur Epithelial Cells 0-5 (0-5) /hpf Urine Bacteria Many H (FEW) /hpf Urine Mucus Few (FEW) /hpf Meds: Medications Generic Name Dose Route Start Last Admin Trade Name Freq PRN Reason Stop Dose Admin Sodium Chloride 1,000 mls @ 150 mls/hr 10/19/17 07:15 10/19/17 07:20 Normal Saline IV 150 mls/hr ASDIRECTED LORETTA Administration Discontinued Medications Generic Name Dose Route Start Last Admin Trade Name Freq PRN Reason Stop Dose Admin Diatrizoate Meglum/Diatrizoate Sod 90 ml 10/19/17 07:38 10/19/17 08:31 Gastrografin 37% PO 10/19/17 07:39 90 ml ONETIME ONE Administration Iopamidol 125 ml 10/19/17 07:38 10/19/17 08:31 Isovue-300 (61%) IVPUSH 10/19/17 07:39 125 ml ONETIME ONE Administration Sodium Chloride 10 ml 10/19/17 07:38 10/19/17 08:31 Saline Flush FLUSH 10/19/17 07:39 10 ml ONETIME ONE Administration - Re-Assessments/Exams Free Text/Narrative Re-Assessment/Exam: 10/19/17 07:06 The patient's left lower quadrant pain and tenderness is concerning for diverticulitis, therefore I have ordered blood work, urinalysis, and a CT scan of the abdomen and pelvis with oral and IV contrast. I have ordered IV fluid, however, the patient declined an offer for pain medication. 10/19/17 08:07 The patient's urinalysis is consistent with a UTI. I have ordered a urine culture, but will hold off ordering antibiotics, pending the CT results. 10/19/17 09:03 CT of the abdomen and pelvis with oral and IV contrast is read by Dr. George as: 1. Focal bowel wall thickening within the mid descending colon with diverticuli and mild inflammatory change. These findings are most likely due to diverticulitis. Recommend endoscopy at some time in the future to make sure this does not represent other etiology. 2. Other incidental findings as noted above. Based on the above findings, I will start the patient on oral Augmentin. The regimen of Levaquin with Flagyl is contraindicated, as the patient is on amiodarone. Current guidelines do not recommend admission to the hospital, as there are no, dictation seen on the CT scan. 10/19/17 09:18st Test results discussed with the patient and his . Will prescribe Augmentin XR, that the patient can take every 12 hours. I'm recommending a low fiber diet. I would like him to follow-up with Dr. Love this October 21. Departure - Departure Time of Disposition: 09:19 Disposition: Home, Self-Care 01 Condition: Fair Clinical Impression: Acute diverticulitis, UTI (urinary tract infection) - Discharge Information Referrals: Bill Love MD [Primary Care Provider] - Forms: ED Department Discharge Additional Instructions: You were seen in the emergency room for lower left abdominal pain since Tuesday. Workup in the ER included blood work, a urinalysis, and a CT scan of your abdomen and pelvis. Your urinalysis showed that you have a urinary tract infection, and your CT scan showed that you have acute diverticulitis. You have been started on the antibiotic Augmentin. A prescription for Augmentin has been sent to the [facility], located across the [address] from [facility]. Take one tablet every 12 hours starting this evening, as prescribed. Finish the entire prescription unless told otherwise by Dr. Love. You should eat a low-fiber diet until you are feeling better, then gradually increase the fiber in your diet. Follow-up with your PCP, Dr. Love, this coming 10/21/2017. If any other problems, please do not hesitate to return to the ER - My Orders Last 24 Hours: My Active Orders 10/19/17 07:15 Sodium Chloride 0.9% [Normal Saline] 1,000 ml IV ASDIRECTED 10/19/17 08:06 CULTURE URINE [RM] Stat - Assessment/Plan Last 24 Hours: My Active Orders 10/19/17 07:15 Sodium Chloride 0.9% [Normal Saline] 1,000 ml IV ASDIRECTED 10/19/17 08:06 CULTURE URINE [] Stat
[2017-10-19] MEDS: Sodium Chloride 0.9% 1,000 ML IV SCH (07:20)
[2017-10-19] MEDS: Sodium Chloride 0.9% 10 ML Syringe FLUSH ONE (08:31)
[2017-10-19] MEDS: Diatrizoate Meglumine/Diatrizoate Sodium 37% 120 ML Bottle PO ONE (08:31)
[2017-10-19] MEDS: Iopamidol 612 MG/ML 150 ML Bottle IVPUSH ONE (08:31)
--- NOTE | 2017-10-19 09:02 | CT ---
CT abdomen and pelvis Technique: Multiple axial sections were obtained from above the dome of the diaphragm inferiorly through the pubic symphysis. Intravenous and oral contrast was utilized. Delayed images were also obtained to the bladder. Comparison: No prior CT abdomen or pelvis exam. Findings: There is an area of bowel wall thickening seen within the descending colon. Several diverticuli are seen in this area as well as mild surrounding inflammatory change. Findings most likely due to diverticulitis. Other diverticuli are seen within the descending and sigmoid colon. Small left-sided pleural effusion is seen. This causes mild left basilar compressive atelectasis. Liver shows no focal parenchymal abnormality. Surgical clips are seen from prior cholecystectomy. Pancreas appears within normal limits. 2 calcifications are seen within the pancreatic head which are most likely vascular as there is no dilatation of the CBD. Kidneys show symmetric contrast enhancement. Minimal calcifications are seen within the lower pole of both kidneys either vascular or due to nonobstructing renal calculi. No ureteral dilatation is seen. Delayed images shows contrast within the bladder. Bladder wall is thickened with an enlarged prostate gland being seen. Aorta shows no aneurysmal dilatation. Aorta shows atherosclerotic calcification which continues into the iliac vessels. No pelvic mass or adenopathy is seen. Fat-containing bilateral inguinal hernias are seen. Bone window settings were reviewed which shows scattered degenerative change within the spine. Impression: 1. Focal bowel wall thickening within the mid descending colon with diverticuli and mild inflammatory change. These findings are most likely due to diverticulitis. Recommend endoscopy at some time in the future to make sure this does not represent other etiology. 2. Other incidental findings as noted above. Diagnostic code #3
[2017-10-19] MEDS: Amoxicillin/Clavulanate K 875-125 MG Tab PO ONE (09:15)
[2017-10-19 09:37] VITALS: BP 146/64
== END 2017-10-19 09:35 | disposition home or self-care (01) ==
LOC: JD.ED 06:19
DX: K57.32 Diverticulitis of large intestine without perforation or abscess without bleeding (principal); N39.0 Urinary tract infection, site not specified; I48.91 Unspecified atrial fibrillation; I25.10 Atherosclerotic heart disease of native coronary artery without angina pectoris; I10 Essential (primary) hypertension; E66.9 Obesity, unspecified; Z79.82 Long term (current) use of aspirin; Z79.899 Other long term (current) drug therapy; Z87.891 Personal history of nicotine dependence
CPT/HCPCS: 36415; 74177; 80053; 81001; 83690; 85007; 85027; 87086; 87088; 87186; 96360; 96361; 99284; A9270; J7040; J7050; Q9963; Q9967

== ENCOUNTER 2017-11-13 22:47 | Emergency (ER) | payer MEDICARE, BC ==
[2017-11-13 22:56] VITALS: BP 164/74
--- NOTE | 2017-11-14 00:35 | EDM.PDOC ---
ED HPI GENERAL MEDICAL PROBLEM - General Chief Complaint: Respiratory Problem Stated Complaint: SOB Time Seen by Provider: 11/13/17 23:03 Source of Information: Reports: Patient, Family () History Limitations: Reports: No Limitations - History of Present Illness INITIAL COMMENTS - FREE TEXT/NARRATIVE: The patient states that he has had a cough, occasionally productive of white sputum, for the past 3 weeks. He is chronically dyspneic on exertion, but this has worsened over the past 2 weeks. No shortness of breath at rest, and no orthopnea. The patient states that he developed shaking chills around 21:00 tonight, despite the room being 76. His checked his temperature and found it to be 101 by an oral mercury thermometer. Around 22:00, his temperature was up to 102.4, however, his fever and chills had resolved by 22:30. No recent nausea, vomiting, constipation, diarrhea, or urinary symptoms. No prior similar symptoms. The patient's PCP is Dr. Love, whom the patient saw on 11/02/2017. The patient states that Robitussin pills were recommended for the patient, which did not help, therefore the patient switched to Robitussin liquid, which also did not help. The patient's Director Of Primary is Dr. Meyer. Treatments COSMETIC SALES: Reports: Other (see below) Other Treatments COSMETIC SALES: tyelnol Left Arm Pain Score (Numeric/FACES): 4 - Related Data Allergies Allergy/AdvReac Type Severity Reaction Status Date / Time No Known Allergies Allergy Verified 10/24/17 07:45 Home Meds: Home Meds Aspirin 81 mg PO DAILY 08/11/17 [History] Famotidine 20 mg PO BID 08/11/17 [History] Furosemide 80 mg PO BID 08/11/17 [History] Latanoprost [Xalatan 0.005% Ophth Soln] 1 drop EYEBOTH BEDTIME 08/11/17 [History ] Potassium Chloride 20 meq PO DAILY 08/11/17 [History] Tamsulosin [Flomax] 0.4 mg PO BID 08/11/17 [History] Vit A,C & E/Lutein/Minerals [Healthy Eyes] 1 tab PO DAILY 08/11/17 [History] Ferrous Sulfate [Iron] 325 mg PO DAILY 08/23/17 [History] Fish Oil/[place]-3 Fatty Acids [Fish Oil 1,000 MG] 1 cap PO BID 08/23/17 [History] Garlic [Garlique] 5,000 mcg PO DAILY 08/23/17 [History] Amiodarone HCl 200 mg PO DAILY 09/19/17 [History] Ascorbic Acid [Vitamin C] 500 mg PO BID 09/19/17 [History] Cholecalciferol (Vitamin D3) [Vitamin D] 400 units PO DAILY 09/19/17 [History] Isosorbide Mononitrate [Imdur] 30 mg PO DAILY 09/19/17 [History] Losartan [Cozaar] 25 mg PO DAILY 09/19/17 [History] Rosuvastatin [Crestor] 20 mg PO BEDTIME 10/19/17 [History] Codeine/Promethazine HCl [Promethazine-Codeine Syrup] 5 ml PO BEDTIME PRN #30 syrup 11/14/17 [Rx] Past Medical History HEENT History: Reports: Impaired Vision Other HEENT History: wears eyeglasses Cardiovascular History: Reports: Afib (chronic), Arrhythmia (Ventricular bigeminy), CAD, High Cholesterol, Hypertension, [place] (07/20/2017, due to rupture of CABG) Respiratory History: Reports: Sleep Apnea (nightly CPAP 10) Gastrointestinal History: Reports: Colon Polyp, GI Bleed, PUD (duodenal ulcer) Genitourinary History: Reports: BPH Musculoskeletal History: Reports: Back Pain, Chronic Neurological History: Reports: Concussion Endocrine/Metabolic History: Reports: Obesity/BMI 30+ - Infectious Disease History Infectious Disease History: Reports: Chicken Pox, Measles, Mumps - Past Surgical History HEENT Surgical History: Reports: Cataract Surgery Cardiovascular Surgical History: Reports: Cardiac Ablation (for A-fib, 2013), Coronary Artery Bypass (x 4 vessel, 07/19/2017), Pacer (07/21/2017), Vascular Surgery (left wrist artery repair October 1999) GI Surgical History: Reports: Cholecystectomy (1994), Colonoscopy, EGD Neurological Surgical History: Reports: Lumbar Spine (discectomy 1975, 1983) Musculoskeletal Surgical History: Reports: Knee Replacement (left Jan 2013, right 03/07/2017) Social & Family History - Family History Cardiac: Reports: [place] Neurological: Reports: CVA Oncologic: Reports: Breast, Colon, Lung, Pancreatic, Prostate - Tobacco Use Smoking Status *Q: Former Smoker Month/Year Tobacco Last Used: 45 yrs - Caffeine Use Caffeine Use: Reports: Coffee, Soda - Recreational Drug Use Recreational Drug Use: No - Living Situation & Occupation Living situation: Reports: , with Spouse Occupation: Retired ED ROS GENERAL - Review of Systems Review Of Systems: ROS reveals no pertinent complaints other than HPI. ED EXAM, GENERAL - Physical Exam Exam: See Below Exam Limited By: No Limitations General Appearance: Alert, WD/WN, No Apparent Distress Eye Exam: Bilateral Eye: Normal Inspection Ears: Normal External Exam, Hearing Grossly Normal Nose: Normal Inspection, No Blood Throat/Mouth: Normal Inspection, Normal Lips, Normal Voice, No Airway Compromise Head: Atraumatic, Normocephalic Neck: Normal Inspection, Full Range of Motion Respiratory/Chest: No Respiratory Distress, Lungs Clear, Normal Breath Sounds, No Accessory Muscle Use. No: Crackles, Rhonchi, Wheezing Cardiovascular: Normal Peripheral Pulses, Regular Rate, Rhythm, No Gallop, No JVD, No Murmur, No Rub Peripheral Pulses: 4+: Radial (L), Radial (R) GI/Abdominal: Normal Bowel Sounds, Soft, Non-Tender, No Organomegaly, No Distention, No Abnormal Bruit, No Mass, Other (Obese) (Male) Exam: Deferred Rectal (Males) Exam: Deferred Back Exam: Normal Inspection, Full Range of Motion, NT Extremities: Normal Inspection, Normal Range of Motion, Non-Tender, Normal Capillary Refill, Other (Trace bilateral pretibial edema) Neurological: Alert, Oriented, Normal Cognition, No Motor/Sensory Deficits Psychiatric: Normal Affect Skin Exam: Warm, Dry, Intact, Normal Color, No Rash EKG INTERPRETATION EKG Date: 11/13/17 Time: 23:51 Rhythm: NSR (Atrially sensed, ventricularly paced) Rate (Beats/Min): 96 P-Wave: Present (1st degree AVB) Comparison: Change From Previous EKG (Some shinnecock conduction 08/23/2017) Course - Vital Signs Last Recorded V/S: Last Vital Signs Temp 37.3 C 11/13/17 22:55 Pulse 113 H 11/13/17 22:55 Resp 25 H 11/13/17 22:55 BP 164/74 H 11/13/17 22:55 Pulse Ox 91 L 11/13/17 22:55 - Orders/Labs/Meds Orders: Active Orders 24 hr Category Date Time Status EKG Documentation Completion [RC] STAT Care 11/13/17 23:13 Active Ang Chest [CT] Stat Exams 11/14/17 00:34 Taken Chest 2V [CR] Stat Exams 11/13/17 23:13 Taken CULTURE BLOOD [BC] Stat Lab 11/13/17 23:43 Received CULTURE BLOOD [BC] Stat Lab 11/13/17 23:50 Received CULTURE URINE [RM] Stat Lab 11/14/17 02:43 Ordered UA W/MICROSCOPIC [URIN] Stat Lab 11/14/17 01:53 Ordered Sodium Chloride 0.9% [Normal Saline] 1,000 ml Med 11/14/17 00:45 Active IV ASDIRECTED Sodium Chloride 0.9% [Normal Saline] 100 ml Med 11/14/17 01:00 Active IV ASDIRECTED Sodium Chloride 0.9% [Saline Flush] Med 11/14/17 01:00 Active 10 ml FLUSH ONETIME PRN Blood Culture x2 Reflex Set [OM.PC] Stat Oth 11/13/17 23:13 Ordered Medication Orders Sodium Chloride (Normal Saline) 1,000 mls @ 100 mls/hr IV ASDIRECTED LORETTA Last Admin: 11/14/17 00:45 Dose: 100 mls/hr Sodium Chloride (Normal Saline) 100 mls @ 75 mls/hr IV ASDIRECTED LORETTA Last Admin: 11/14/17 01:11 Dose: 75 mls/hr Sodium Chloride (Saline Flush) 10 ml FLUSH ONETIME PRN PRN Reason: IV FLUSH Last Admin: 11/14/17 01:11 Dose: 10 ml Labs: Laboratory Tests 11/13/17 11/13/17 11/13/17 Range/Units 23:25 23:43 23:43 WBC 10.40 H (4.23-9.07) K/mm3 RBC 4.27 L (4.63-6.08) M/mm3 Hgb 11.0 L (13.7-17.5) gm/L Hct 35.0 L (40.1-51.0) % MCV 82.0 (79.0-92.2) fl MCH 25.8 (25.7-32.2) pg MCHC 31.4 L (32.2-35.5) g/dl RDW Std Deviation 42.5 (35.1-43.9) fL Plt Count 264 (163-337) K/mm3 MPV 10.0 (9.4-12.3) fl Neutrophils % (Manual) 88 H (40-60) % Band Neutrophils % 0 (0-10) % Lymphocytes % (Manual) 4 L (20-40) % Atypical Lymphs % 0 % Monocytes % (Manual) 7 (2-10) % Eosinophils % (Manual) 1 (0.8-7.0) % Basophils % (Manual) 0 L (0.2-1.2) Toxic Granulation 1+ slight Dohle Bodies Platelet Estimate Adequate Plt Morphology Comment Normal RBC Morph Comment Normal PT 10.9 (9.5-12.1) SECONDS INR 1.00 APTT 28 (24-31) SECONDS D-Dimer, Quantitative 3.64 H (0.19-0.50) mg/L Puncture Site Lt radial ABG pH 7.44 (7.35-7.45) ABG pCO2 35.4 (35.0-45.0) mmHg ABG pO2 59.0 L (80.0-100.0) mmHg ABG HCO3 23.7 (22.0-26.0) meq/L ABG O2 Saturation 91.6 L (96.0-97.0) % ABG Base Excess 0.3 (-2-2.0) [place] Test Positive A-a Gradient 31 mmHg O2 Delivery Device Room air FiO2 21.00 (21.00-100.00) % Sodium (136-145) mEq/L Potassium (3.5-5.1) mEq/L Chloride (98-107) mEq/L Carbon Dioxide (21-32) mEq/L Anion Gap (5-15) BUN (7-18) mg/dL Creatinine (0.7-1.3) mg/dL Est Cr Clr Drug Dosing mL/min Estimated GFR (MDRD) (>60) mL/min BUN/Creatinine Ratio (14-18) Glucose (83-115) mg/dL Lactic Acid (0.4-2.0) mmol/L Calcium (8.5-10.1) mg/dL Total Bilirubin (0.2-1.0) mg/dL AST (15-37) U/L ALT (16-63) U/L Alkaline Phosphatase (46-116) U/L Troponin I (0.00-0.056) ng/mL NT-Pro-B Natriuret Pep (0-450) pg/mL Total Protein (6.4-8.2) g/dl Albumin (3.4-5.0) g/dl Globulin gm/dL Albumin/Globulin Ratio (1-2) Urine Color (Yellow) Urine Appearance (Clear) Urine pH (5.0-8.0) Ur Specific [place] (1.005-1.030) Urine Protein (Negative) Urine Glucose (UA) (Negative) Urine Ketones (Negative) Urine Occult Blood (Negative) Urine Nitrite (Negative) Urine Bilirubin (Negative) Urine Urobilinogen (0.2-1.0) Ur Leukocyte Esterase (Negative) Urine RBC (0-5) /hpf Urine WBC (0-5) /hpf Ur Epithelial Cells (0-5) /hpf Urine Bacteria (FEW) /hpf Hyaline Casts (0-5) /lpf Urine Mucus (FEW) /hpf 11/13/17 11/13/17 11/13/17 Range/Units 23:43 23:43 23:43 WBC (4.23-9.07) K/mm3 RBC (4.63-6.08) M/mm3 Hgb (13.7-17.5) gm/L Hct (40.1-51.0) % MCV (79.0-92.2) fl MCH (25.7-32.2) pg MCHC (32.2-35.5) g/dl RDW Std Deviation (35.1-43.9) fL Plt Count (163-337) K/mm3 MPV (9.4-12.3) fl Neutrophils % (Manual) (40-60) % Band Neutrophils % (0-10) % Lymphocytes % (Manual) (20-40) % Atypical Lymphs % % Monocytes % (Manual) (2-10) % Eosinophils % (Manual) (0.8-7.0) % Basophils % (Manual) (0.2-1.2) Toxic Granulation Dohle Bodies Platelet Estimate Plt Morphology Comment RBC Morph Comment PT (9.5-12.1) SECONDS INR APTT (24-31) SECONDS D-Dimer, Quantitative (0.19-0.50) mg/L Puncture Site ABG pH (7.35-7.45) ABG pCO2 (35.0-45.0) mmHg ABG pO2 (80.0-100.0) mmHg ABG HCO3 (22.0-26.0) meq/L ABG O2 Saturation (96.0-97.0) % ABG Base Excess (-2-2.0) [place] Test A-a Gradient mmHg O2 Delivery Device FiO2 (21.00-100.00) % Sodium 140 (136-145) mEq/L Potassium 3.8 (3.5-5.1) mEq/L Chloride 105 (98-107) mEq/L Carbon Dioxide 27 (21-32) mEq/L Anion Gap 11.8 (5-15) BUN 18 (7-18) mg/dL Creatinine 1.2 (0.7-1.3) mg/dL Est Cr Clr Drug Dosing 58.27 mL/min Estimated GFR (MDRD) 58 (>60) mL/min BUN/Creatinine Ratio 15.0 (14-18) Glucose 154 H (83-115) mg/dL Lactic Acid 1.5 (0.4-2.0) mmol/L Calcium 8.8 (8.5-10.1) mg/dL Total Bilirubin 0.5 (0.2-1.0) mg/dL AST 32 (15-37) U/L ALT 40 (16-63) U/L Alkaline Phosphatase 93 (46-116) U/L Troponin I 0.032 (0.00-0.056) ng/mL NT-Pro-B Natriuret Pep 664 H (0-450) pg/mL Total Protein 7.2 (6.4-8.2) g/dl Albumin 3.1 L (3.4-5.0) g/dl Globulin 4.1 gm/dL Albumin/Globulin Ratio 0.8 L (1-2) Urine Color (Yellow) Urine Appearance (Clear) Urine pH (5.0-8.0) Ur Specific [place] (1.005-1.030) Urine Protein (Negative) Urine Glucose (UA) (Negative) Urine Ketones (Negative) Urine Occult Blood (Negative) Urine Nitrite (Negative) Urine Bilirubin (Negative) Urine Urobilinogen (0.2-1.0) Ur Leukocyte Esterase (Negative) Urine RBC (0-5) /hpf Urine WBC (0-5) /hpf Ur Epithelial Cells (0-5) /hpf Urine Bacteria (FEW) /hpf Hyaline Casts (0-5) /lpf Urine Mucus (FEW) /hpf 11/14/17 Range/Units 01:53 WBC (4.23-9.07) K/mm3 RBC (4.63-6.08) M/mm3 Hgb (13.7-17.5) gm/L Hct (40.1-51.0) % MCV (79.0-92.2) fl MCH (25.7-32.2) pg MCHC (32.2-35.5) g/dl RDW Std Deviation (35.1-43.9) fL Plt Count (163-337) K/mm3 MPV (9.4-12.3) fl Neutrophils % (Manual) (40-60) % Band Neutrophils % (0-10) % Lymphocytes % (Manual) (20-40) % Atypical Lymphs % % Monocytes % (Manual) (2-10) % Eosinophils % (Manual) (0.8-7.0) % Basophils % (Manual) (0.2-1.2) Toxic Granulation Dohle Bodies Platelet Estimate Plt Morphology Comment RBC Morph Comment PT (9.5-12.1) SECONDS INR APTT (24-31) SECONDS D-Dimer, Quantitative (0.19-0.50) mg/L Puncture Site ABG pH (7.35-7.45) ABG pCO2 (35.0-45.0) mmHg ABG pO2 (80.0-100.0) mmHg ABG HCO3 (22.0-26.0) meq/L ABG O2 Saturation (96.0-97.0) % ABG Base Excess (-2-2.0) [place] Test A-a Gradient mmHg O2 Delivery Device FiO2 (21.00-100.00) % Sodium (136-145) mEq/L Potassium (3.5-5.1) mEq/L Chloride (98-107) mEq/L Carbon Dioxide (21-32) mEq/L Anion Gap (5-15) BUN (7-18) mg/dL Creatinine (0.7-1.3) mg/dL Est Cr Clr Drug Dosing mL/min Estimated GFR (MDRD) (>60) mL/min BUN/Creatinine Ratio (14-18) Glucose (83-115) mg/dL Lactic Acid (0.4-2.0) mmol/L Calcium (8.5-10.1) mg/dL Total Bilirubin (0.2-1.0) mg/dL AST (15-37) U/L ALT (16-63) U/L Alkaline Phosphatase (46-116) U/L Troponin I (0.00-0.056) ng/mL NT-Pro-B Natriuret Pep (0-450) pg/mL Total Protein (6.4-8.2) g/dl Albumin (3.4-5.0) g/dl Globulin gm/dL Albumin/Globulin Ratio (1-2) Urine Color Yellow (Yellow) Urine Appearance Clear (Clear) Urine pH 6.0 (5.0-8.0) Ur Specific [place] 1.015 (1.005-1.030) Urine Protein 1+ H (Negative) Urine Glucose (UA) Negative (Negative) Urine Ketones Negative (Negative) Urine Occult Blood Negative (Negative) Urine Nitrite Negative (Negative) Urine Bilirubin Negative (Negative) Urine Urobilinogen 0.2 (0.2-1.0) Ur Leukocyte Esterase 1+ H (Negative) Urine RBC Not seen (0-5) /hpf Urine WBC 10-20 H (0-5) /hpf Ur Epithelial Cells Not seen (0-5) /hpf Urine Bacteria Few (FEW) /hpf Hyaline Casts 0-5 (0-5) /lpf Urine Mucus Few (FEW) /hpf Meds: Medications Generic Name Dose Route Start Last Admin Trade Name Freq PRN Reason Stop Dose Admin Sodium Chloride 1,000 mls @ 100 mls/hr 11/14/17 00:45 11/14/17 00:45 Normal Saline IV 100 mls/hr ASDIRECTED LORETTA Administration Sodium Chloride 100 mls @ 75 mls/hr 11/14/17 01:00 11/14/17 01:11 Normal Saline IV 75 mls/hr ASDIRECTED LORETTA Administration Sodium Chloride 10 ml 11/14/17 01:00 11/14/17 01:11 Saline Flush FLUSH 10 ml ONETIME PRN Administration IV FLUSH Discontinued Medications Generic Name Dose Route Start Last Admin Trade Name Freq PRN Reason Stop Dose Admin Iopamidol 100 ml 11/14/17 01:00 11/14/17 01:11 Isovue-370 (76%) IVPUSH 11/14/17 01:01 100 ml ONETIME ONE Administration - Re-Assessments/Exams Free Text/Narrative Re-Assessment/Exam: 11/14/17 00:07 2-view chest radiograph reviewed. Cardiac silhouette is within normal limits. No pulmonary vascular congestion. Moderate left-sided pleural effusion noted. No focal infiltrate. No pneumothorax. Sternotomy wires, left atrial appendage clip, and cardiac clips noted. Left-sided 2 chamber pacemaker noted. Formal read per the Radiologist pending. 11/14/17 00:35 The patient's D-dimer has returned substantially elevated at 3.64, with normal renal function. I have ordered a CT angiogram of the chest to evaluate for PE. 11/14/17 01:40 CT angiogram of the chest is read by [facility] as "Moderate to large left pleural effusion, unchanged. No evidence of pulmonary emboli." 11/14/17 02:44 The patient's urinalysis finds 1+ leukocyte esterase and 10-20 WBCs, but only few bacteria. I don't believe this is consistent with a UTI. I have ordered a urine culture, but I am not going to start empiric antibiotics at this time. The remainder of the patient's workup is unremarkable, and does not explain the cause of the patient's fever and chills. The patient is likely suffering from a viral illness. 11/14/17 02:59 Test results discussed with the patient and his . I will prescribe promethazine with codeine syrup, that the patient can start taking at bedtime, to help him sleep. I would like the patient to follow-up with his PCP, Dr. Love , later this week. Departure - Departure Time of Disposition: 03:00 Disposition: Home, Self-Care 01 Condition: Fair Clinical Impression: Viral URI with cough, Fever - Discharge Information Prescriptions: Codeine/Promethazine HCl [Promethazine-Codeine Syrup] 5 ml PO BEDTIME PRN #30 syrup PRN Reason: Cough Referrals: Bill Love MD [Primary Care Provider] - Forms: ED Department Discharge Additional Instructions: You were seen in the emergency room for 3 weeks of a cough, worsening shortness of breath with exertion, and a fever tonight. Workup in the ER included blood work, 2 sets of blood cultures, an arterial blood gas, a urinalysis, a chest x-ray, a CT angiogram of your chest, and an ECG. Your entire workup was unremarkable, and does not explain the cause of your symptoms. There is no evidence that you have an infection, such as pneumonia. You do not have a blood clot in your chest. You are not in congestive heart failure. You have not suffered a recent heart attack. You do not have a urinary tract infection. You have been prescribed the cough medicine codeine with promethazine. Take 5 mL at bedtime, as needed for cough. If you take codeine with promethazine cough syrup, do not drive for 10 hours afterwards. Codeine may cause constipation, so consider taking a stool softener. Follow-up with your PCP, Dr. Love, later this week. If any other problems, please do not hesitate to return to the ER. - My Orders Last 24 Hours: My Active Orders 11/13/17 23:13 EKG Documentation Completion [RC] STAT Chest 2V [CR] Stat Blood Culture x2 Reflex Set [OM.PC] Stat 11/13/17 23:43 CULTURE BLOOD [BC] Stat 11/13/17 23:50 CULTURE BLOOD [BC] Stat 11/14/17 00:34 Ang Chest [CT] Stat 11/14/17 00:45 Sodium Chloride 0.9% [Normal Saline] 1,000 ml IV ASDIRECTED 11/14/17 01:00 Sodium Chloride 0.9% [Normal Saline] 100 ml IV ASDIRECTED Sodium Chloride 0.9% [Saline Flush] 10 ml FLUSH ONETIME PRN 11/14/17 01:53 UA W/MICROSCOPIC [URIN] Stat 11/14/17 02:43 CULTURE URINE [RM] Stat - Assessment/Plan Last 24 Hours: My Active Orders 11/13/17 23:13 EKG Documentation Completion [RC] STAT Chest 2V [CR] Stat Blood Culture x2 Reflex Set [OM.PC] Stat 11/13/17 23:43 CULTURE BLOOD [BC] Stat 11/13/17 23:50 CULTURE BLOOD [BC] Stat 11/14/17 00:34 Ang Chest [CT] Stat 11/14/17 00:45 Sodium Chloride 0.9% [Normal Saline] 1,000 ml IV ASDIRECTED 11/14/17 01:00 Sodium Chloride 0.9% [Normal Saline] 100 ml IV ASDIRECTED Sodium Chloride 0.9% [Saline Flush] 10 ml FLUSH ONETIME PRN 11/14/17 01:53 UA W/MICROSCOPIC [URIN] Stat 11/14/17 02:43 CULTURE URINE [RM] Stat
[2017-11-14] MEDS ORDERED: Sodium Chloride 0.9% 1,000 ML IV SCH (00:45)
[2017-11-14] MEDS ORDERED: Sodium Chloride 0.9% 10 ML Syringe FLUSH PRN (01:00)
[2017-11-14] MEDS ORDERED: Iopamidol 755 Mg/ML 100 ML Bottle IVPUSH ONE (01:00)
[2017-11-14] MEDS ORDERED: Sodium Chloride 0.9% 100 ML IV SCH (01:00)
--- NOTE | 2017-11-14 07:48 | CT ---
CT chest Technique: Multiple axial sections through the chest were obtained. Intravenous contrast was utilized. Study has been performed as a pulmonary angiogram protocol. Comparison: Chest x-ray performed earlier on same day (11:[address] of 08/23/17). Findings: Moderate left-sided pleural effusion which appears fairly stable from prior chest CT. Mild compressive atelectasis is seen within the left lung base. Lungs otherwise are clear. No acute parenchymal change is seen. No findings of pulmonary embolism are seen. Prosthetic mitral valve is noted. Prior CABG is seen. Sternotomy wires are noted. Degenerative spurring noted within the spine. Previous cholecystectomy is noted. Impression: 1. No findings of pulmonary embolism. 2. Moderate left-sided pleural effusion which appears similar to prior chest CT. 3. Other incidental findings. Diagnostic code #3 Agree with preliminary report issued by [employer] ([facility] preliminary report dictated on 11/14/17, 2:33 AM Central Time)
--- NOTE | 2017-11-14 07:48 | CR ---
Chest: Two views of the chest were obtained. Comparison: Prior chest x-ray of 08/23/17. Left-sided pleural effusion is seen. Mild atelectasis is noted within the left base. Lungs otherwise are clear. Prior sternotomy noted. Prosthetic heart valve seen. Pacemaker is noted. Degenerative spurring noted within the spine. Impression: 1. Small to moderate size left-sided pleural effusion. Mild left basilar atelectasis. 2. Previous sternotomy with prosthetic heart valve and pacemaker. 3. No other acute abnormality is seen. Diagnostic code #3
== END 2017-11-14 03:20 | disposition home or self-care (01) ==
LOC: JD.ED 22:47
DX: J06.9 Acute upper respiratory infection, unspecified (principal); I48.91 Unspecified atrial fibrillation; I25.10 Atherosclerotic heart disease of native coronary artery without angina pectoris; E78.00 Pure hypercholesterolemia, unspecified; I10 Essential (primary) hypertension; Z79.82 Long term (current) use of aspirin; Z79.899 Other long term (current) drug therapy; Z87.891 Personal history of nicotine dependence
CPT/HCPCS: 36415; 36600; 71046; 71275; 80053; 81001; 82803; 83605; 83880; 84484; 85007; 85027; 85379; 85610; 85730; 87040; 87086; 93005; 96360; 96361; 99285; J7030; J7040; J7050; Q9967; 99283

== ENCOUNTER 2019-10-27 10:56 | Emergency (ER) | payer MEDICARE, BC ==
[2019-10-27 11:14] VITALS: BP 154/70; PULSE 80
--- NOTE | 2019-10-27 11:14 | EDM.PDOC ---
ED HPI GENERAL MEDICAL PROBLEM - General Chief Complaint: Laceration Stated Complaint: R HAND LAC Time Seen by Provider: 10/27/19 11:06 Source of Information: Reports: Patient History Limitations: Reports: No Limitations - History of Present Illness INITIAL COMMENTS - FREE TEXT/NARRATIVE: Patient is an 84-year-old male who presents with a 1.5 cm laceration to his right index finger. The injury occurred around 4 PM yesterday afternoon. He states he cut it on a piece of metal. He is not sure when his last tetanus vaccination was. Patient also complains of intermittent left ear pain. He denies any ear drainage. States he had similar pain in his right ear but this resolved. He also complains of nasal congestion. Denies any fever or chills. - Related Data Allergies Allergy/AdvReac Type Severity Reaction Status Date / Time No Known Allergies Allergy Verified 10/27/19 11:13 Home Meds: Home Meds Aspirin 81 mg PO DAILY 08/11/17 [History] Famotidine 20 mg PO BID 08/11/17 [History] Furosemide 80 mg PO BID 08/11/17 [History] Latanoprost [Xalatan 0.005% Ophth Soln] 1 drop EYEBOTH BEDTIME 08/11/17 [History ] Potassium Chloride 20 meq PO DAILY 08/11/17 [History] Tamsulosin [Flomax] 0.4 mg PO BID 08/11/17 [History] Vits A,C,E/Lutein/Minerals [Healthy Eyes] 1 tab PO DAILY 08/11/17 [History] Ferrous Sulfate [Iron] 325 mg PO DAILY 08/23/17 [History] Fish Oil/Marianna-3 Fatty Acids [Fish Oil 1,000 MG] 1 cap PO BID 08/23/17 [History] Garlic [Garlique] 5,000 mcg PO DAILY 08/23/17 [History] Amiodarone HCl 200 mg PO DAILY 09/19/17 [History] Ascorbic Acid [Vitamin C] 500 mg PO BID 09/19/17 [History] Cholecalciferol (Vitamin D3) [Vitamin D] 400 units PO DAILY 09/19/17 [History] Isosorbide Mononitrate [Imdur] 30 mg PO DAILY 09/19/17 [History] Losartan [Cozaar] 25 mg PO DAILY 09/19/17 [History] Rosuvastatin [Crestor] 20 mg PO BEDTIME 10/19/17 [History] Codeine/Promethazine HCl [Promethazine-Codeine Syrup] 5 ml PO BEDTIME PRN #30 syrup 11/14/17 [Rx] Past Medical History HEENT History: Reports: Impaired Vision Other HEENT History: wears eyeglasses Cardiovascular History: Reports: Afib (chronic), Arrhythmia (Ventricular bigeminy), CAD, High Cholesterol, Hypertension, [place] (07/20/2017, due to rupture of CABG) Other Cardiovascular History: ablation, 3 nerves, ventricular bygemny Respiratory History: Reports: Sleep Apnea (nightly CPAP 10) Other Respiratory History: wears C-PAP while sleeping. Gastrointestinal History: Reports: Colon Polyp, GI Bleed, PUD (duodenal ulcer) Genitourinary History: Reports: BPH Other Genitourinary History: enlarged prostate. Musculoskeletal History: Reports: Back Pain, Chronic Neurological History: Reports: Concussion Endocrine/Metabolic History: Reports: Obesity/BMI 30+ - Infectious Disease History Infectious Disease History: Reports: Chicken Pox, Measles, Mumps - Past Surgical History HEENT Surgical History: Reports: Cataract Surgery Cardiovascular Surgical History: Reports: Cardiac Ablation (for A-fib, 2013), Coronary Artery Bypass (x 4 vessel, 07/19/2017), Pacer (07/21/2017), Vascular Surgery (left wrist artery repair October 1999) GI Surgical History: Reports: Cholecystectomy (1994), Colonoscopy, EGD Neurological Surgical History: Reports: Lumbar Spine (discectomy 1975, 1983) Musculoskeletal Surgical History: Reports: Knee Replacement (left Jan 2013, right 03/07/2017) Social & Family History - Family History Cardiac: Reports: [place] Neurological: Reports: CVA Oncologic: Reports: Breast, Colon, Lung, Pancreatic, Prostate - Caffeine Use Caffeine Use: Reports: Coffee, Soda - Living Situation & Occupation Living situation: Reports: , with Spouse Occupation: Retired ED ROS GENERAL - Review of Systems Review Of Systems: Comprehensive ROS is negative, except as noted in HPI. ED EXAM, SKIN/RASH Exam: See Below Exam Limited By: No Limitations General Appearance: Alert, WD/WN, No Apparent Distress Ears: Normal External Exam, Normal Canal, Hearing Grossly Normal, Other (Clear fluid behind the left TM. no bulging or injection.) Respiratory/Chest: No Respiratory Distress, Lungs Clear, Normal Breath Sounds, No Accessory Muscle Use, Chest Non-Tender Cardiovascular: Normal Peripheral Pulses, Regular Rate, Rhythm, No Edema, No Gallop, No JVD, No Murmur, No Rub Skin: Other (1.5 cm slightly gaping laceration to the dorsal lateral aspect of the right index finger between the DIP and PIP joints. There is a small piece of tissue protruding. No active bleeding.) ED SKIN PROCEDURES - Laceration/Wound Repair Right Lateral Dorsal Digit - 2nd (Index) Appearance: Subcutaneous Distal NVT: Neuro & Vascular Intact Anesthetic Type: Local Local Anesthesia - Lidocaine (Xylocaine): 1% Plain Local Anesthetic Volume: 2cc Skin Prep: Chlorhexidine (Hibiciens), Providone-Iodine (Betadine), Saline Exploration/Debridement/Repair: Wound Explored, No Foreign Material Found Closed with: Sutures Lac/Wound length In cm: 1.5 Suture Size: 4-0 # of Sutures: 2 Suture Type: Nylon, Other (loose) Sterile Dressing Applied: Nurse Tetanus Status Addressed: Yes Complications: No Course - Vital Signs Last Recorded V/S: Last Vital Signs Temp 97.3 F 10/27/19 11:12 Pulse 80 10/27/19 11:12 Resp 16 10/27/19 11:12 BP 154/70 H 10/27/19 11:12 Pulse Ox 96 10/27/19 11:12 - Orders/Labs/Meds Orders: Active Orders 24 hr Category Date Time Status Vaccines to be Administered [RC] PER UNIT ROUTINE Care 10/27/19 11:18 Active Meds: Medications Discontinued Medications Generic Name Dose Route Start Last Admin Trade Name Luci PRN Reason Stop Dose Admin Diphtheria/Tetanus/Acell Pertussis 0.5 ml 10/27/19 11:18 10/27/19 11:27 Adacel IM 10/27/19 11:19 0.5 ml .ONCE ONE Administration Lidocaine HCl 10 ml 10/27/19 11:29 10/27/19 11:35 Xylocaine 1% INJECT 10/27/19 11:30 10 ml ONETIME ONE Administration - Re-Assessments/Exams Free Text/Narrative Re-Assessment/Exam: , Patient does have some clear fluid behind his left tympanic membrane. Discussed that he is likely suffering from seasonal allergies. Recommend Flonase spray and a daily Claritin. The laceration to his right index finger is slightly gaping with some tissue protruding. Since it has been greater than 12 hours since the laceration occurred, we will not close it completely, however I will put some loose sutures in to pull the edges closer together. We will update his tetanus vaccination today. Departure - Departure Time of Disposition: 11:50 Disposition: Home, Self-Care 01 Condition: Good Clinical Impression: Seasonal allergies, Laceration - Discharge Information *PRESCRIPTION DRUG MONITORING PROGRAM REVIEWED*: No *COPY OF PRESCRIPTION DRUG MONITORING REPORT IN PATIENT ROSS: No Instructions: Allergic Rhinitis, Adult, [id number], Sutures, Suresh, or Adhesive Wound Closure, [id number] Referrals: Bill Love MD [Primary Care Provider] - Forms: ED Department Discharge Additional Instructions: You were seen in the emergency department today for a laceration to your right index finger. Since it has been more than 12 hours since the injury occurred, it is not recommended that the wound be completely closed as it increases the risk of infection. The wound was cleansed and loosely closed with 2 sutures. These should stay intact for 7 days. After that time they may be removed in the clinic by a nurse. Keep the wound clean and dry. Wash with normal soap and water twice daily. Do not submerge the wound in water. Watch for signs of infection including increased redness, swelling, or purulent drainage. If these should occur, you should be seen either in the clinic or in the emergency department as these are signs of infection. With regards to your ear pain and nasal congestion, it is like that you are suffering from seasonal allergies. Recommend that you purchase Flonase nasal spray [id number]. This is a steroid that will help decrease the inflammation and facilitate drainage of the fluid behind your ear. You may also take a daily Claritin to help with your allergy symptoms. Return to the ER as needed. Sepsis Event Note - Focused Exam Vital Signs: Vital Signs Temp Pulse Resp BP Pulse Ox 10/27/19 11:12 97.3 F 80 16 154/70 H 96 Date Exam was Performed: 10/27/19 Time Exam was Performed: 16:47 - My Orders Last 24 Hours: My Active Orders 10/27/19 11:18 Vaccines to be Administered [RC] PER UNIT ROUTINE - Assessment/Plan Last 24 Hours: My Active Orders 10/27/19 11:18 Vaccines to be Administered [RC] PER UNIT ROUTINE
[2019-10-27] MEDS ORDERED: Diphtheria,Pertussis(Acell),Tetanus Vaccine 0.5 ML Syringe IM ONE (11:18)
[2019-10-27] MEDS ORDERED: Lidocaine 1% 10 ML MDV INJECT ONE (11:29)
== END 2019-10-27 11:45 | disposition home or self-care (01) ==
LOC: JD.ED 10:56
DX: S61.210A Laceration without foreign body of right index finger without damage to nail, initial encounter (principal); J30.2 Other seasonal allergic rhinitis; I48.91 Unspecified atrial fibrillation; I25.10 Atherosclerotic heart disease of native coronary artery without angina pectoris; E78.00 Pure hypercholesterolemia, unspecified; I10 Essential (primary) hypertension; I25.2 Old myocardial infarction; N40.0 Benign prostatic hyperplasia without lower urinary tract symptoms; E66.9 Obesity, unspecified; Z95.1 Presence of aortocoronary bypass graft; Z79.82 Long term (current) use of aspirin; Z79.899 Other long term (current) drug therapy; Z23 Encounter for immunization; W26.9XXA Contact with unspecified sharp object(s), initial encounter
CPT/HCPCS: 12001; 90471; 90715; 99283; J2001; 99282

== ENCOUNTER 2021-11-29 12:54 | Emergency (ER) | payer MEDICARE, BC ==
[2021-11-29 13:51] VITALS: BP 160/84; PULSE 87
[2021-11-29] MEDS ORDERED: Sodium Chloride 0.9% 10 ML Syringe FLUSH PRN (14:05)
[2021-11-29 16:14] LABS: CORONAVIRUS COVID-19 NAA POSITIVE (NEGATIVE)
== END 2021-11-29 16:28 | disposition home or self-care (01) ==
LOC: JD.ED 12:54
DX: U07.1 COVID-19 (principal); I25.10 Atherosclerotic heart disease of native coronary artery without angina pectoris; E78.00 Pure hypercholesterolemia, unspecified; I10 Essential (primary) hypertension; I25.2 Old myocardial infarction; F17.210 Nicotine dependence, cigarettes, uncomplicated; E66.9 Obesity, unspecified; Z68.30 Body mass index [BMI] 30.0-30.9, adult; Z79.899 Other long term (current) drug therapy; Z79.82 Long term (current) use of aspirin; Z79.01 Long term (current) use of anticoagulants; Z90.49 Acquired absence of other specified parts of digestive tract
CPT/HCPCS: 0240U; 36415; 71045; 80053; 85025; 86140; 99285; J3490

== ENCOUNTER 2023-06-26 08:46 | Emergency (ER) | payer MEDICARE, BC ==
[2023-06-26 09:01] VITALS: PULSE 81
[2023-06-26 09:23] LABS: BASOPHILS PERCENT AUTO 0.5 % (0.0-1.0); EOSINOPHILS ABSOLUTE AUTO 0.1 K/mm3 (0.0-0.4); HEMATOCRIT 35.1 % (42.0-52.0); HEMOGLOBIN 11.5 gm/dl (14.0-18.0); IMMATURE GRAN ABSOLUTE AUTO 0.02 K/mm3 (0.00-0.05); IMMATURE GRAN PERCENT AUTO 0.3 % (0.0-0.4); LYMPHOCYTES PERCENT AUTO 15.5 % (24.0-44.0); MEAN CORPUSCULAR HEMOGLOBIN 29.5 pg (28.0-32.0); MEAN CORPUSCULAR HGB CONC 32.8 g/dl (32.0-36.0); MEAN PLATELET VOLUME 9.4 fl (9.4-12.4); MONOCYTES ABSOLUTE AUTO 0.5 K/mm3 (0.0-0.8); MONOCYTES PERCENT AUTO 7.8 % (0.0-8.0); NEUTROPHILS ABSOLUTE AUTO 4.5 K/mm3 (1.8-7.7); NEUTROPHILS PERCENT AUTO 73.9 % (41.0-71.0); PLATELET COUNT,PLT 209 K/mm3 (150-400); WHITE BLOOD CELL COUNT,WBC 6.14 K/mm3 (3.9-11.3)
[2023-06-26 09:52] LABS: A/G RATIO 0.9 (1-2); ALANINE AMINOTRANSFERASE,ALT 35 U/L (16-63); ALBUMIN 3.2 g/dl (3.4-5.0); ALKALINE PHOSPHATASE 84 U/L (46-116); ASPARTATE AMNIOTRANSFERASE,AST 22 U/L (15-37); BILIRUBIN TOTAL 0.8 mg/dL (0.2-1.0); BLOOD UREA NITROGEN,BUN 10 mg/dL (7-18); BUN/CREATININE RATIO 9.1 (14-18); C-REACTIVE PROTEIN 0.7 mg/dL (<1.0); CALCIUM 8.6 mg/dL (8.5-10.1); CARBON DIOXIDE,CO2 25 mEq/L (21-32); CHLORIDE,CL 107 mEq/L (98-107); CREATININE 1.1 mg/dL (0.7-1.3); ESTIMATED GFR 65 mL/min (>60); GLUCOSE RANDOM 147 mg/dL (70-99); PROTEIN TOTAL,TP 6.8 g/dl (6.4-8.2); SODIUM,NA 141 mEq/L (136-145)
[2023-06-26 09:56] LABS: TROPONIN I HIGH SENSITIVITY 209 pg/mL (<=76)
[2023-06-26] MEDS: Iopamidol 755 Mg/ML 100 ML Bottle IVPUSH ONE (10:35)
[2023-06-26] MEDS: Sodium Chloride 0.9% 10 ML Syringe FLUSH PRN (10:35)
[2023-06-26] MEDS: Sodium Chloride 0.9% 100 ML IV SCH (10:36)
[2023-06-26] MEDS: Heparin Sodium/D5W 25,000 UNITS/500 ML BAG IV SCH (12:03)
[2023-06-26] MEDS: Heparin Sodium 5,000 Units/ML Vial IVPUSH ONE (12:03)
[2023-06-26] MEDS: Aspirin 81 MG Tab.Chew PO ONE (12:04)
[2023-06-26 17:31] VITALS: BP 155/74
== END 2023-06-26 17:10 ==
LOC: JD.ED 08:46
DX: R06.00 Dyspnea, unspecified (principal); I21.4 Non-ST elevation (NSTEMI) myocardial infarction; I25.810 Atherosclerosis of coronary artery bypass graft(s) without angina pectoris; R79.89 Other specified abnormal findings of blood chemistry; I10 Essential (primary) hypertension; I25.2 Old myocardial infarction; E78.00 Pure hypercholesterolemia, unspecified; E66.9 Obesity, unspecified; F17.210 Nicotine dependence, cigarettes, uncomplicated; Z79.82 Long term (current) use of aspirin; Z79.899 Other long term (current) drug therapy
CPT/HCPCS: 36415; 71046; 71275; 80053; 83880; 84484; 85025; 85379; 86140; 93005; 96365; 96366; 99285; A9270; J1644; J3490; Q9967; 93010

== ENCOUNTER 2024-04-04 07:54 | Emergency (ER) | payer MEDICARE, BC ==
[2024-04-04 08:16] VITALS: BP 121/72; PULSE 67
[2024-04-04] MEDS ORDERED: Sodium Chloride 0.9% 10 ML Syringe FLUSH PRN (08:18)
[2024-04-04 08:48] LABS: BASOPHILS PERCENT AUTO 0.7 % (0.0-1.0); EOSINOPHILS ABSOLUTE AUTO 0.1 K/mm3 (0.0-0.4); EOSINOPHILS PERCENT AUTO 1.9 % (0.0-6.0); HEMOGLOBIN 13.4 gm/dl (14.0-18.0); IMMATURE GRAN ABSOLUTE AUTO 0.01 K/mm3 (0.00-0.05); IMMATURE GRAN PERCENT AUTO 0.2 % (0.0-0.4); LYMPHOCYTES ABSOLUTE AUTO 1.3 K/mm3 (1.0-4.8); LYMPHOCYTES PERCENT AUTO 23.6 % (24.0-44.0); MEAN CORPUSCULAR HEMOGLOBIN 30.5 pg (28.0-32.0); MEAN CORPUSCULAR HGB CONC 33.5 g/dl (32.0-36.0); MEAN CORPUSCULAR VOLUME 90.9 fl (83.0-99.0); MEAN PLATELET VOLUME 10.7 fl (9.4-12.4); MONOCYTES ABSOLUTE AUTO 0.3 K/mm3 (0.0-0.8); MONOCYTES PERCENT AUTO 6.4 % (0.0-8.0); NEUTROPHILS ABSOLUTE AUTO 3.6 K/mm3 (1.8-7.7); NEUTROPHILS PERCENT AUTO 67.2 % (41.0-71.0); PLATELET COUNT,PLT 191 K/mm3 (150-400); WHITE BLOOD CELL COUNT,WBC 5.34 K/mm3 (3.9-11.3)
[2024-04-04 09:21] LABS: A/G RATIO 0.9 (1-2); ALBUMIN 3.3 g/dl (3.4-5.0); ANION GAP 13.6 (5-15); BILIRUBIN TOTAL 0.6 mg/dL (0.2-1.0); BUN/CREATININE RATIO 11.4 (14-18); C-REACTIVE PROTEIN 0.3 mg/dL (<0.30); CALCIUM 9.2 mg/dL (8.5-10.1); CREATININE 1.4 mg/dL (0.7-1.3); EST CRCL DRUG DOSING (CG) 43.59 mL/min; POTASSIUM,K 3.6 mEq/L (3.5-5.1)
== END 2024-04-04 11:30 ==
LOC: JD.ED 07:54
DX: I21.4 Non-ST elevation (NSTEMI) myocardial infarction (principal); I11.0 Hypertensive heart disease with heart failure; I50.9 Heart failure, unspecified; R79.89 Other specified abnormal findings of blood chemistry; I48.91 Unspecified atrial fibrillation; I25.10 Atherosclerotic heart disease of native coronary artery without angina pectoris; I25.2 Old myocardial infarction; E66.9 Obesity, unspecified; Z95.1 Presence of aortocoronary bypass graft; Z90.49 Acquired absence of other specified parts of digestive tract; Z79.899 Other long term (current) drug therapy; Z79.01 Long term (current) use of anticoagulants; Z79.51 Long term (current) use of inhaled steroids; Z79.82 Long term (current) use of aspirin; Z68.37 Body mass index [BMI] 37.0-37.9, adult
CPT/HCPCS: 36415; 71046; 71046-26; 80053; 83880; 84484; 85025; 85379; 86140; 93005; 93010; 99285

== ENCOUNTER 2024-05-18 13:31 | Emergency (ER) | payer MEDICARE, BC ==
[2024-05-18 13:46] VITALS: BP 147/86; PULSE 66
== END 2024-05-18 14:30 | disposition home or self-care (01) ==
LOC: JD.ED 13:31
DX: S63.633A Sprain of interphalangeal joint of left middle finger, initial encounter (principal); I48.91 Unspecified atrial fibrillation; I25.10 Atherosclerotic heart disease of native coronary artery without angina pectoris; I25.2 Old myocardial infarction; I10 Essential (primary) hypertension; E66.9 Obesity, unspecified; Z68.38 Body mass index [BMI] 38.0-38.9, adult; Z90.49 Acquired absence of other specified parts of digestive tract; Z96.659 Presence of unspecified artificial knee joint; Z79.82 Long term (current) use of aspirin; Z79.01 Long term (current) use of anticoagulants; Z79.899 Other long term (current) drug therapy; W23.1XXA Caught, crushed, jammed, or pinched between stationary objects, initial encounter
CPT/HCPCS: 73140-26-F2; 73140-F2; 99283